=== PATIENT | male | born 1940 | race Caucasian/White ===

== ENCOUNTER 2017-11-06 16:30 | Inpatient (IN) | payer MEDICARE, BC ==
--- NOTE | 2017-11-17 15:53 | HP ---
HISTORY OF PRESENT ILLNESS: Mathew Collado is a 77-year-old male patient that presents to my office i n followup. He has an open wound left buttocks/thigh undergoing daily wound care. The wound VAC has been discontinued. He is undergoing non VAC care. Home health has seen him. Patient has a colosto my. 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 Drains were placed in the fistulous tract of his fistula. Postoperatively, the patient has done well. Plan at this time is for him to undergo colonoscopy after bowel prep, stay on clear liquids after that myrna wel prep, complete oral antibiotics and magnesium citrate and then the next day undergoing laparoscop ic possible open colostomy reversal, colorectal anastomosis and split-thickness skin grafting of the left buttock and thigh wounds 16 x 8 cm, approximately 128 cm2 area that needs to be skin grafted. Patient has had bradycardia. He is undergoing Holter monitoring next [address] Cano. I hernández ve spoken personally to Dr. Cano. The patient is cleared from a cardiac standpoint to have this pr ocedure done. We will schedule it about in 2 weeks given the patient time to have his Holter monitor interpreted. The patient had a right colon resection approximately 12 years ago resulting in anastomotic leak requ iring reoperation. Apparently had operation initially performed in [place] and then repeat operation s at [facility]. He has a right lateral mid abdomen transverse incision from that initial o peration. ALLERGIES: None. TOBACCO: None. ALCOHOL: None. MEDICATIONS: Lisinopril 2.5 mg a day, amiodarone 200 mg at bedtime, insulin a.m., tramadol b.i.d., s ertraline daily, furosemide 20 mg a day, B12 daily, Eliquis 5 mg b.i.d. Currently, this is held due to gastrointestinal bleeding. Glyburide 5 mg b.i.d., atorvastatin 20 mg at bedtime, Prilosec 20 mg a day, aspirin 81 mg a day. PAST SURGICAL HISTORY: Coronary artery bypass grafting in the past, right hemicolectomy, repeat oper ation for a leak performed for colon cancer, right shoulder surgery, recent stenting, operation as de scribed above due to colocutaneous fistula left colon from diverticulitis. PAST MEDICAL HISTORY: Coronary artery disease, stable; paroxysmal atrial fibrillation, had coronary artery bypass grafting, hypertension, hyperlipidemia, history of colon cancer, diabetes mellitus type 2, GERD, bradycardia, undergoing evaluation currently. REVIEW OF SYSTEMS: Noncontributory. PHYSICAL EXAMINATION: VITAL SIGNS: 207 pounds, 73 inches, 137/54, 46, 98.6 degrees. HEENT: Unremarkable. LUNGS: Clear to auscultation. CARDIAC: Irregularly irregular. ABDOMEN: Soft, nontender. Colostomy present. Midline incision well healed, right transverse mid ab dominal incision well healed. No hernias evident. Left buttock/thigh wound granulating, flushed wit h the skin 16 x 8 cm, 128 cm2 proximally. EXTREMITIES: Unremarkable. ASSESSMENT AND PLAN: 1. Colostomy status, he desires colostomy reversal. He has history of colon cancer. We will arrang e preoperative colonoscopy proctoscopy by [facility] and then he will stay on liq uids after that procedure and take oral antibiotic bowel prep and undergoing laparoscopic possible op en colostomy reversal skin grafting, left buttock, thigh graft for left buttock/thigh wound. H e understands risks of infection, bleeding, reoperation and consents. 2. History of atrial fibrillation. Currently, with bradycardia undergoing evaluation by Dr. Cano. I have talked to Dr. Cano personally, and he is undergoing Holter monitoring. We will await resu lts and plan surgery in the next 2-3 weeks as noted above, awaiting Dr. Cano's evaluation. He is c leared for surgery after Holter monitor evaluation. 3. History of coronary artery bypass grafting. 4. History of coronary stents. 5. History of colon cancer, status post right colectomy. 6. Plan, currently anticoagulation is held. 7. Currently we will plan for perioperative pain control with a tap block versus epidural.
[2017-12-05 14:52] VITALS: BMI 27.2
[2017-12-06] MEDS ORDERED: Lidocaine 1% (PF) 30 ML VIAL ONE (06:32)
[2017-12-06] MEDS ORDERED: Midazolam HCl 2 mg/2 ml Vial ONE ×2 (06:32→07:05)
[2017-12-06] MEDS ORDERED: Fentanyl 100 MCG/2 ML VIAL ONE ×5 (06:32→10:05)
[2017-12-06] MEDS ORDERED: Dexamethasone 4 mg/ml Vial ONE (06:34)
[2017-12-06 06:40] LABS: #Eosinphils 0.1 thou/uL (0.0-0.7); #Lymphocytes 1.4 thou/uL (1.20-3.40); #Monocytes 0.5 thou/uL (0.11-0.59); #Neutrophils 4.6 thou/uL (1.40-6.50); %Eosinophils 2.2 % (0.0-10.0); %Lymphocytes 20.3 % (21.0-51.0); %Monocytes 8.1 % (0.0-10.0); %Neutrophils 69.3 % (42.0-75.0); Hemoglobin 11.9 g/dL (14.0-18.0); Mean Corpuscular HGB CONC 30.4 g/dL (32.0-36.0); Mean Corpuscular Hemoglobin 24.6 pg (27.0-31.0); Mean Corpuscular Volume 80.8 fl (80.0-94.0); Mean Platelet Volume 9.7 fL (7.4-10.4); Platelet Count 202 thou/uL (130-400); RBC Distribution Width 17.2 % (11.5-14.5); Red Blood Cell (RBC) Count 4.83 mill/uL (4.70-6.10); White Blood Cell (WBC) Count 6.6 thou/uL (4.8-10.8)
[2017-12-06] MEDS ORDERED: cefOXitin 2 GM, Syringe 1 ML in Sterile Water 10 ML SLOW IVP SCH (06:45)
[2017-12-06] MEDS ORDERED: Bupivacaine 0.25% HCL 30 ML VIAL ONE ×2 (06:50→10:04)
[2017-12-06] MEDS ORDERED: Bupivacaine HCl 0.5%/Epinephrine 1:200,000/PF 30 ml Vial ONE (06:50)
[2017-12-06] MEDS ORDERED: Lidocaine 2% w/Epinephrine 1:200K 20 ML VIAL ONE (06:50)
[2017-12-06 06:52] LABS: Anion Gap 14 mmol/L (10-20); BUN (Urea Nitrogen) 19 mg/dL (8.4-25.7); Calc. Creatinine Clearance 57 mL/min (70-130); Carbon Dioxide 23 mmol/L (23-31); Chloride 105 mmol/L (98-107); Estimated GFR-MDRD 50; Glucose 153 mg/dL (83-110); Potassium 3.8 mmol/L (3.5-5.1); Sodium 138 mmol/L (136-145)
[2017-12-06] MEDS ORDERED: Ketorolac Tromethamine 30 MG/ML VIAL ONE (06:56)
[2017-12-06 07:04] LABS: Hemoglobin A1c 7.5 % (4.0-6.0)
[2017-12-06] MEDS ORDERED: cefOXitin 2 GM VIAL ONE (09:28)
[2017-12-06] MEDS ORDERED: Lidocaine 1% w/Epinephrine 1:200K 30 ML VIAL ONE (10:04)
[2017-12-06] MEDS ORDERED: Ondansetron HCl/PF 4 MG/2 ML Vial IVP PRN (10:09)
[2017-12-06] MEDS ORDERED: hydrALAZINE 20 MG/ML VIAL SLOW IVP PRN (10:09)
[2017-12-06] MEDS ORDERED: traMADol HCl 50 MG TAB PO PRN (10:13)
[2017-12-06] MEDS ORDERED: Ondansetron ODT 8 MG TAB PO PRN (10:20)
[2017-12-06] MEDS ORDERED: Ondansetron ORAL SOLN. 4 MG/5 ML UDCUP PO PRN ×2 (10:20)
[2017-12-06] MEDS ORDERED: Ondansetron ODT 4 MG TAB PO PRN (10:20)
[2017-12-06] MEDS ORDERED: Ondansetron ODT 8 MG TAB SL PRN (10:20)
[2017-12-06] MEDS: Acetaminophen 1,000 MG in Premix Bag 1 BAG IVPB SCH ×3 (13:05→23:47)
[2017-12-06] MEDS: Ketorolac Tromethamine 30 MG/ML VIAL IVP SCH ×3 (13:05→23:47)
[2017-12-06] MEDS: Lactated Ringer's 1,000 ML IV SCH ×3 (13:05→23:46)
--- NOTE | 2017-12-06 13:18 | OP ---
DATE OF PROCEDURE: 12/06/2017 PREOPERATIVE DIAGNOSIS: Undesired colostomy, status post diverticulitis, necessitans with necrotizin g fasciitis, left buttock and thigh. Open wound, left buttock and thigh, 19 x 6 cm. POSTOPERATIVE DIAGNOSIS: Undesired colostomy, status post diverticulitis, necessitans with necrotizi ng fasciitis, left buttock and thigh. Open wound, left buttock and thigh, 19 x 6 cm. PROCEDURE: Laparoscopic lysis of adhesions and reversal of colostomy with colorectal anastomosis 33 mm EEA stapler. Split thickness skin grafting harvesting, left lateral posterior thigh, applied to o pen wound left buttock/thigh, wound VAC application over the skin graft site. Prevena dressing, left abdomen. SURGEON: Dr. Octaviano David. ANESTHESIA: General. Local anesthetic mixture 0.25% Marcaine mixed with 1% Xylocaine with epinephri ne 20 mL, total volume mixture used, abdomen; and same mixture total volume used, skin graft harvest site, left thigh. PROCEDURE IN DETAIL: Patient taken to the operating room where under general anesthesia in the dorsa l lithotomy position, Rascon catheter was placed. Abdomen prepared with ChloraPrep, and perineum and buttocks prepared with Betadine, draped in the routine fashion. Right lateral subcostal incision mad e and pneumoperitoneum to 15 mmHg obtained with the Veress needle, replacing it with a 5 port, and vi anali laparoscope inserted. There were adhesions of small bowel and omentum to the anterior abdominal wall and an area clear of adhesions of 5 mm port was placed in the mid lateral right abdomen and care ful dissection carried out freeing the small bowel from the anterior abdominal wall. I was then able to place a 12 port in the right lower quadrant under laparoscopic visualization. We then took down more adhesions clearing the anterior abdominal wall. There was a mesh in the upper incision from her previous laparoscopic mesh repair of incisional hernia. This looked healthy and ingrown. No visibl e hernia was noted. Dissection was carried out and the colostomy identified and colostomy mobilized, small bowel adhesions taken down laparoscopically carefully. At this point, attention was then turn ed to the pelvis laparoscopically, where the rectal stump was identified and the sigmoid dissected fr ee down to the rectosigmoid junction and the rectum divided with the SARAY blue load Endo stapler. At this point, incision was made circumferentially at the old colostomy site, carried down through skin, subcutaneous tissue, dissecting the colon free from the abdomen and dropping into abdominal cavity. Wound protector was used. Colon end brought out through the wound protector and wound protected and colostomy excised and a 33 mm anvil lubricated in place within the colon and a pursestring suture of 2-0 Prolene secured around it. It was brought back into the abdominal cavity and then the operating crew's gloves were changed, dirty instruments discarded, and wound protector twisted reestablishing pneumoperitoneum. Anus gently dilated and passed into the rectal stump serially with upsizing dilato rs. The stapler was then placed and visualized laparoscopically in proper position and the post adva nced out of the rectal stump visualized and mated to the proximal colon connected and properly orient ed. The stapler was approximated within the torque fire range and then it was fired and then loosene d and removed, and complete donuts were noted and discarded. The anastomosis checked under water and there was no leak. At this point, the wound protector was removed and pneumoperitoneum reduced afte r GraNee needle 0 Vicryl used to close the fascia with single interrupted suture at the 12 port site right lower quadrant. Posterior fascia closed with continuous suture of #1 PDS. Wound irrigated. A nterior fascia approximately interrupted with [id number] sutures of #1 PDS. Wound irrigated aga in. Subcutaneous tissues irrigated closely. Hemostasis gained with the cautery and the colostomy ss ite closed with a 3-0 Monocryl pursestring puckering suture. Laparoscopic sites closed with 4-0 [place] cryl suture. Prevena dressing placed over the old colostomy site. The patient was then positioned in the right lateral decubitus position with the left side up and the wound of dimensions in size noted above was cleansed with ChloraPrep and it was debrided sharply of superficial tissue leveling the granulation tissue in place and laparotomy pad over it. A skin graft was harvested with a dermatome, approximately 0.20 thickness and then meshed 1.5:1 a proper size and then the split-thickness skin graft applied to the open wound and secured circumferentially with sta ples and excess trimmed. Xeroform, Telfa placed over the harvest site, left posterior lateral thigh, and OpSite dressing applied. Wound care team arrived and placed a wound VAC over the skin graft sit e. Patient tolerated the procedure well without complications.
[2017-12-06] MEDS ORDERED: Lidocaine 1% PF 5 ML VIAL ONE (16:23)
[2017-12-06] MEDS ORDERED: PHENYLEPHRINE-NS 100 MCG/ML 10 ML SYRINGE ONE (16:23)
[2017-12-06] MEDS ORDERED: Propofol 200 MG/20 ML VIAL ONE (16:23)
[2017-12-06] MEDS ORDERED: Glycopyrrolate 0.2 MG/ML 5 ML SYRINGE ONE (16:23)
[2017-12-06] MEDS: Insulin Regular 300 UNITS/3 ML VIAL SC PRN ×2 (17:34→21:12)
--- NOTE | 2017-12-06 19:01 | EKG ---
Test Reason : PREOP Blood Pressure : / mmHG Vent. Rate : 058 BPM Atrial Rate : 058 BPM P-R Int : 198 ms QRS Dur : 106 ms QT Int : 616 ms P-R-T Axes : 099 -37 -03 degrees QTc Int : 604 ms Sinus bradycardia Left axis deviation Inferior infarct (cited on or before 30-JUL-2017) Prolonged QT Abnormal ECG When compared with ECG of 31-JUL-2017 22:49, Incomplete right bundle branch block is no longer Present Minimal criteria for Anterior infarct are no longer Present Confirmed by DR. Juan A BENSON ([id number]) on 12/06/2017 7:01:40 PM Referred By: WESLEY Confirmed By:DR. Juan A BENSON
[2017-12-06] MEDS ORDERED: Apixaban 5 MG TAB PO SCH (21:00)
[2017-12-06] MEDS: Gabapentin 300 MG CAP PO SCH (21:11)
[2017-12-06] MEDS: Famotidine 20 MG TAB PO SCH (21:11)
[2017-12-06] MEDS: Amiodarone 200 MG TAB PO SCH (21:11)
[2017-12-06] MEDS: Enoxaparin Sodium 40 MG/0.4 ML SYRINGE SC SCH (21:11)
[2017-12-07] MEDS: Ketorolac Tromethamine 30 MG/ML VIAL IVP SCH ×2 (05:39→12:06)
[2017-12-07] MEDS: Acetaminophen 1,000 MG in Premix Bag 1 BAG IVPB SCH (05:39)
[2017-12-07 05:45] LABS: #Eosinphils 0.2 thou/uL (0.0-0.7); #Lymphocytes 0.9 thou/uL (1.20-3.40); #Monocytes 0.4 thou/uL (0.11-0.59); #Neutrophils 5.9 thou/uL (1.40-6.50); %Basophils 0.3 % (0.0-1.0); %Lymphocytes 12.2 % (21.0-51.0); %Monocytes 5.9 % (0.0-10.0); %Neutrophils 79.6 % (42.0-75.0); Hemoglobin 9.9 g/dL (14.0-18.0); Mean Corpuscular HGB CONC 30.6 g/dL (32.0-36.0); Mean Corpuscular Hemoglobin 24.9 pg (27.0-31.0); Mean Corpuscular Volume 81.2 fl (80.0-94.0); Mean Platelet Volume 9.7 fL (7.4-10.4); Platelet Count 152 thou/uL (130-400); RBC Distribution Width 17.2 % (11.5-14.5); Red Blood Cell (RBC) Count 3.98 mill/uL (4.70-6.10); White Blood Cell (WBC) Count 7.4 thou/uL (4.8-10.8)
[2017-12-07 06:11] LABS: Anion Gap 11 mmol/L (10-20); BUN (Urea Nitrogen) 21 mg/dL (8.4-25.7); Calc. Creatinine Clearance 52 mL/min (70-130); Calcium 7.8 mg/dL (7.8-10.44); Carbon Dioxide 24 mmol/L (23-31); Chloride 103 mmol/L (98-107); Estimated GFR-MDRD 45; Glucose 108 mg/dL (83-110); Potassium 3.6 mmol/L (3.5-5.1); Sodium 134 mmol/L (136-145)
[2017-12-07] MEDS: Lactated Ringer's 1,000 ML IV SCH ×2 (06:21→12:58)
[2017-12-07] MEDS ORDERED: Acetaminophen 500 MG TAB PO PRN (08:00)
[2017-12-07] MEDS: Aspirin 81 mg Enteric Coated Tablet PO SCH (08:45)
[2017-12-07] MEDS: Famotidine 20 MG TAB PO SCH ×2 (08:45→20:34)
[2017-12-07] MEDS: Lisinopril 2.5 MG TAB PO SCH (08:47)
[2017-12-07] MEDS: Insulin Regular 300 UNITS/3 ML VIAL SC PRN ×3 (12:06→20:35)
[2017-12-07] MEDS ORDERED: Polyethylene Glycol 3350 17 GM Packet PO PRN (16:56)
--- NOTE | 2017-12-07 17:44 | PRG ---
DATE OF SERVICE: 12/07/2017 SUBJECTIVE: : Mathew Collado is doing well postoperatively. He is not having any pain to speak o f. Status post laparoscopic colostomy reversal and split-thickness skin grafting, left buttock, thig h wound. Patient has had a bowel movement and passing flatus. He has not suffered any nausea or vom iting. OBJECTIVE: VITAL SIGNS: 99.1 degrees, 68, 115/57. LUNGS: Clear to auscultation. CARDIAC: Regular rate and rhythm without murmur or gallop. ABDOMEN: Soft, nontender, active bowel sounds. Surgical wounds look good. Prevena wound incisional VAC. Colostomy site left lower quadrant looks good. Skin harvest site. EXTREMITIES: Left thigh looks good. ASSESSMENT AND PLAN: Doing well. PLAN: Continue diabetic diet tonight. Resume home medications. Hold Eliquis 48-72 hours postoperat ively. Discharge home tomorrow.
[2017-12-07] MEDS: metFORMIN 500 MG TAB PO SCH (18:23)
[2017-12-07] MEDS: traMADol HCl 50 MG TAB PO PRN ×2 (18:23→23:43)
[2017-12-07] MEDS: Amiodarone 200 MG TAB PO SCH (20:33)
[2017-12-07] MEDS: Gabapentin 300 MG CAP PO SCH (20:34)
[2017-12-07] MEDS: Enoxaparin Sodium 40 MG/0.4 ML SYRINGE SC SCH (20:34)
[2017-12-07] MEDS ORDERED: Atorvastatin Calcium 20 MG TAB PO SCH (21:00)
[2017-12-08] MEDS: Insulin Regular 300 UNITS/3 ML VIAL SC PRN (06:19)
[2017-12-08] MEDS: Aspirin 81 mg Enteric Coated Tablet PO SCH (07:53)
[2017-12-08] MEDS: metFORMIN 500 MG TAB PO SCH (07:53)
[2017-12-08] MEDS: Lisinopril 2.5 MG TAB PO SCH (07:54)
[2017-12-08] MEDS: Famotidine 20 MG TAB PO SCH (07:54)
[2017-12-08] MEDS: traMADol HCl 50 MG TAB PO PRN ×2 (07:57→13:05)
[2017-12-08] MEDS ORDERED: Furosemide 20 MG TAB PO SCH (09:00)
[2017-12-08] MEDS ORDERED: Cyanocobalamin (Vitamin B-12) 1,000 MCG TAB PO SCH (09:00)
[2017-12-08] MEDS ORDERED: Insulin Detemir 100 UNITS/ML 40 UNITS in Pre-Filled Syringe SC SCH (09:00)
--- NOTE | 2017-12-08 10:52 | PRG ---
DATE OF SERVICE: 12/08/2017 Mathew Collado is doing well today. PHYSICAL EXAMINATION: VITAL SIGNS: Stable, afebrile. He is tolerating a regular diabetic diet. LUNGS: Clear to auscultation. CARDIAC: Regular rate and rhythm without murmur or gallop. ABDOMEN: Soft, nontender. Segmental colon resection specimen pathology was benign. Laboratories are stable. The patient's Prevena wound VAC incisional taken off his old colostomy site left lower quadrant and t his wound looks good. The patient is doing very well. He is being discharged home today with a home wound VAC. I will see him in the office Monday afternoon to remove his wound VAC from his skin raheem t site. The patient will resume his Eliquis tomorrow evening 3 days postoperatively.
[2017-12-08 11:21] VITALS: BP 137/69; TEMP 98.3
--- NOTE | 2017-12-08 18:49 | DIS ---
DATE OF ADMISSION: 12/05/2017 DATE OF DISCHARGE: 12/08/2017 DISCHARGE DIAGNOSES: Undesired colostomy, open wound left hip. DISCHARGE MEDICATIONS: Today is Monday; he will resume his Eliquis tomorrow evening, 3 days postoper atively. He will resume his home medications; MiraLax, B12; metformin 1000 b.i.d.; sertraline q.a.m. ; lisinopril 2.5 daily; Prilosec 20 mg a day; amiodarone 0.5 mg at bedtime; gabapentin 600 mg at bedt jono; furosemide 20 mg a day; atorvastatin 20 mg at bedtime; Eliquis 5 mg b.i.d., resume tomorrow even ing; insulin 40 units subcutaneously a.m.; aspirin 81 mg daily; tramadol as needed for pain, prescrip tion #25 one refill given; ibuprofen as needed for pain and Tylenol as needed for pain, [id number] ter. HOSPITAL COURSE: Diverticulitis necessitans resulting necrotizing fasciitis, left flank, buttock and thigh, status post incision and drainage, debridement, laparotomy and colostomy. He now presents fo r colostomy reversal, undergoing laparoscopic colostomy reversal after preoperative colonoscopy bowel prep. Postoperatively, he has done well. He had skin grafting in his left open wound left buttock and thigh. Wound VAC was applied to that. Prevena wound VAC removed prior to discharge from his old colostomy site that looked good. The patient postoperatively convalesced, tolerated diet, and had b owel function and discharged home with followup next week.
[2017-12-09] MEDS ORDERED: Ibuprofen 600 MG TAB PO PRN (08:00)
== END 2017-12-08 13:45 | disposition home health service (06) | DRG 576 ==
LOC: SURG A 12-06 05:33 → SURG B 12-06 12:37
PROVIDERS: ADMIT Specialist; ATTEND Specialist
PROC: 0HR8X74 Replacement of Buttock Skin with Autologous Tissue Substitute, Partial Thickness, External Approach (ICD-10-PCS; principal; 2017-12-06)
PROC: 0DBP4ZZ Excision of Rectum, Percutaneous Endoscopic Approach (ICD-10-PCS; 2017-12-06)
PROC: 0DNU4ZZ Release Omentum, Percutaneous Endoscopic Approach (ICD-10-PCS; 2017-12-06)
PROC: 0DN84ZZ Release Small Intestine, Percutaneous Endoscopic Approach (ICD-10-PCS; 2017-12-06)
PROC: 0MN Bursae and Ligaments, Release (ICD-10-PCS; 2017-12-06)
PROC: 0JB90ZZ Excision of Buttock Subcutaneous Tissue and Fascia, Open Approach (ICD-10-PCS; 2017-12-06)
PROC: 0HBJXZZ Excision of Left Upper Leg Skin, External Approach (ICD-10-PCS; 2017-12-06)
DX: S71.102A Unspecified open wound, left thigh, initial encounter (principal); M72.6 Necrotizing fasciitis; I48.0 Paroxysmal atrial fibrillation; I11.0 Hypertensive heart disease with heart failure; I50.42 Chronic combined systolic (congestive) and diastolic (congestive) heart failure; Z43.3 Encounter for attention to colostomy; E11.9 Type 2 diabetes mellitus without complications; I25.10 Atherosclerotic heart disease of native coronary artery without angina pectoris; Z79.01 Long term (current) use of anticoagulants; Z90.49 Acquired absence of other specified parts of digestive tract; Z79.82 Long term (current) use of aspirin; Z79.4 Long term (current) use of insulin; E78.5 Hyperlipidemia, unspecified; Z85.038 Personal history of other malignant neoplasm of large intestine; K21.9 Gastro-esophageal reflux disease without esophagitis; S31.829A Unspecified open wound of left buttock, initial encounter; K57.90 Diverticulosis of intestine, part unspecified, without perforation or abscess without bleeding; Z87.891 Personal history of nicotine dependence; R00.1 Bradycardia, unspecified
CPT/HCPCS: 36415; 36416; 80048; 83036; 85025; 88307; 93005; 93010; A4216; J0131; J0670; J0694; J1100; J1650; J1815; J1885; J2001; J2250; J2704; J3010; S0020

== ENCOUNTER 2018-07-26 17:16 | Emergency (ER) | payer MEDICARE, BC ==
[2018-07-26 18:36] LABS: #Eosinphils 0.2 thou/uL (0.0-0.7); #Lymphocytes 1.9 thou/uL (1.20-3.40); #Monocytes 0.5 thou/uL (0.11-0.59); #Neutrophils 4.5 thou/uL (1.40-6.50); %Basophils 0.3 % (0.0-1.0); %Eosinophils 2.6 % (0.0-10.0); %Monocytes 7.6 % (0.0-10.0); %Neutrophils 62.6 % (42.0-75.0); Hemoglobin 13.4 g/dL (14.0-18.0); Mean Corpuscular HGB CONC 31.3 g/dL (32.0-36.0); Mean Corpuscular Volume 83.2 fL (78.0-98.0); Mean Platelet Volume 6.1 fL (7.4-10.4); Platelet Count 172 thou/uL (130-400); RBC Distribution Width 25.6 % (11.5-14.5); Red Blood Cell (RBC) Count 5.15 mill/uL (4.70-6.10); White Blood Cell (WBC) Count 7.1 thou/uL (4.8-10.8)
[2018-07-26 18:51] LABS: Anisocytosis MODERATE=16-30 cells (100X) (0-5/hpf); Elliptocytes SLIGHT = 2-5 cells (100X) (0-1/hpf); Hypochromia SLIGHT = 6-15 cells (100X) (0-5/hpf); MDiff Complete? YES; Ovalocytes SLIGHT = 2-5 cells (100X) (0-1/hpf); PLT Morphology Comment Appears Adequate; Poikilocytosis SLIGHT = 6-15 cells (100X) (0-5/hpf); Polychromasia SLIGHT = 2-3 cells (100X) (0-2/hpf); Schistocytes SLIGHT = 2-5 cells (100X) (0-1/hpf)
[2018-07-26 18:59] LABS: ALT (SGPT) 19 U/L (8-55); AST (SGOT) 26 U/L (5-34); Albumin 4.2 g/dL (3.4-4.8); Alkaline Phosphatase 86 U/L (40-150); Anion Gap 13 mmol/L (10-20); BUN (Urea Nitrogen) 28 mg/dL (8.4-25.7); Bilirubin, Total 0.8 mg/dL (0.2-1.2); CKMB 5.2 ng/mL (0-6.6); Calc. Creatinine Clearance 0 mL/min (70-130); Calcium 9.4 mg/dL (7.8-10.44); Carbon Dioxide 24 mmol/L (23-31); Chloride 106 mmol/L (98-107); Estimated GFR-MDRD 47; Globulin 3.6 g/dL (2.4-3.5); Glucose 158 mg/dL (83-110); Potassium 4.3 mmol/L (3.5-5.1); Protein, Total 7.8 g/dL (5.8-8.1); Sodium 139 mmol/L (136-145); Troponin I Less than 0.010 ng/mL (< 0.028)
--- NOTE | 2018-07-26 19:26 | RAD ---
CHEST ONE VIEW: 07/26/18 HISTORY: Atrial fibrillation. COMPARISON: 08/23/17. FINDINGS: The cardiac silhouette is magnified by projection. Pulmonary vasculature upper limits of normal. Medi astinum is midline with aortic calcification and postoperative changes. No confluent air space consol idation or evidence of pneumothorax. IMPRESSION: Chronic type findings are stable. No active cardiopulmonary abnormalities are demonstrated. POS: [facility]
== END 2018-07-26 21:25 | disposition home or self-care (01) ==
LOC: ERS 17:16
DX: R00.0 Tachycardia, unspecified (principal); I25.2 Old myocardial infarction; E11.9 Type 2 diabetes mellitus without complications; I10 Essential (primary) hypertension; E66.9 Obesity, unspecified; I48.91 Unspecified atrial fibrillation; Z79.82 Long term (current) use of aspirin; Z79.899 Other long term (current) drug therapy; Z79.4 Long term (current) use of insulin
CPT/HCPCS: 71045; 80053; 82553; 84484; 85025; 93005; 96360; 96361

== ENCOUNTER 2018-11-07 09:39 | Inpatient (IN) | payer MEDICARE, BC ==
[2018-11-07 10:54] LABS: #Eosinphils 0.1 thou/uL (0.0-0.7); #Lymphocytes 0.9 thou/uL (1.20-3.40); #Monocytes 0.4 thou/uL (0.11-0.59); %Basophils 0.1 % (0.0-1.0); %Eosinophils 0.8 % (0.0-10.0); %Lymphocytes 10.3 % (21.0-51.0); %Monocytes 4.6 % (0.0-10.0); %Neutrophils 84.1 % (42.0-75.0); Hemoglobin 13.7 g/dL (14.0-18.0); Mean Corpuscular HGB CONC 31.6 g/dL (32.0-36.0); Mean Corpuscular Hemoglobin 28.5 pg (27.0-31.0); Mean Corpuscular Volume 90.4 fL (78.0-98.0); Mean Platelet Volume 8.6 fL (7.4-10.4); Platelet Count 238 thou/uL (130-400); RBC Distribution Width 14.2 % (11.5-14.5); White Blood Cell (WBC) Count 8.4 thou/uL (4.8-10.8)
--- NOTE | 2018-11-07 10:58 | RAD ---
CHEST 1 VIEW: HISTORY: Cough. COMPARISON: 07/26/2018. FINDINGS: Cardiac silhouette is magnified by projection and upper limits of normal. Pulmonary vasculature uppe r limits of normal. Mild atelectasis at the left base is stable. The patient is slightly rotated ri ghtward. There are postoperative changes of the mediastinum and aortic calcifications. Degenerative changes of each shoulder. No evidence of pneumothorax. IMPRESSION: 1. Atherosclerosis. 2. Chronic-type findings are stable. POS: [facility]
[2018-11-07 11:18] LABS: ALT (SGPT) 16 U/L (8-55); AST (SGOT) 24 U/L (5-34); Albumin 3.9 g/dL (3.4-4.8); Alkaline Phosphatase 89 U/L (40-150); Anion Gap 15 mmol/L (10-20); BUN (Urea Nitrogen) 19 mg/dL (8.4-25.7); Bilirubin, Total 0.8 mg/dL (0.2-1.2); Calc. Creatinine Clearance 0 mL/min (70-130); Calcium 9.6 mg/dL (7.8-10.44); Carbon Dioxide 24 mmol/L (23-31); Chloride 106 mmol/L (98-107); Estimated GFR-MDRD 56; Globulin 3.2 g/dL (2.4-3.5); Glucose 141 mg/dL (83-110); Magnesium 2.2 mg/dL (1.6-2.6); Protein, Total 7.1 g/dL (5.8-8.1); Sodium 141 mmol/L (136-145)
--- NOTE | 2018-11-07 11:44 | CT ---
CT HEAD NONCONTRAST: Date: 11/07/18 HISTORY: Altered mental status. Headache. FINDINGS: No comparison. There is no evidence of acute intracranial hemorrhage or infarct. Mild chronic ischemic small vessel disease and diffuse cortical atrophy. There is no mass effect or shift of midline structures. Visuali zed paranasal sinuses remain well aerated. IMPRESSION: No acute intracranial abnormalities are demonstrated. POS: [facility]
[2018-11-07 11:47] LABS: Bilirubin Negative (Negative); Blood, Urine Small (Negative); Clarity CLEAR (Clear); Glucose, Urine (Dipstick) 100 mg/dL (Negative); Leukocyte Negative (Negative); Nitrite Negative (Negative); Protein, Urine (Dipstick) 100 mg/dL (Neg-Trace); Specific Gravity, Urine 1.023 (1.002-1.036); Urobilinogen 0.2 mg/dL (0.2-1.0)
[2018-11-07 11:49] LABS: Bacteria/HPF None Seen HPF (None Seen); Hyaline Casts/LPF 7-10 HYALINE CAST LPF (0-3 Hyaline); Pathc Cast-AUWi Flag 1.01 (0-2.49); Squamous Epithelial 0-3 HPF (0-3); WBC/HPF 0-3 HPF (0-3)
--- NOTE | 2018-11-07 13:14 | CT ---
CT LUMBAR SPINE NONCONTRAST: HISTORY: Back pain with leg weakness. FINDINGS: Vertebral body height and alignment are maintained. Disk space narrowing at the L1-2, L2-3, and L3-4 levels. Multilevel gas-disk phenomenon. Prominent osteophytosis. Mild disk bulges. No severe angie tral canal stenosis or focal traumatic disk herniation is apparent. Degenerative changes are present with multilevel foraminal stenoses most severe bilaterally at the L3-4 level and on the right at the L4-5 level. Prominent calcification throughout the arterial structures. IMPRESSION: 1. Prominent degenerative changes of the lumbar spine including severe bilateral foraminal stenoses. No evidence of high-grade central canal stenosis. 2. No acute osseous abnormalities are demonstrated. 3. Atherosclerosis. POS: [facility]
[2018-11-07 16:04] VITALS: BMI 30.3
[2018-11-07] MEDS ORDERED: Ondansetron ODT 4 MG TAB PO PRN (17:19)
[2018-11-07] MEDS ORDERED: Ondansetron PF 4 MG/2 ML Vial IVP PRN (17:19)
[2018-11-07] MEDS ORDERED: Dextrose 5% in Water 1,000 ML IV PRN (17:19)
[2018-11-07] MEDS ORDERED: Dextrose 50% Abboject 50 ML SYRINGE SLOW IVP PRN (17:19)
--- NOTE | 2018-11-07 19:34 | HP ---
PRIMARY CARE PROVIDER: John Romero DO CHIEF COMPLAINT: Lower extremity weakness and fall. HISTORY OF PRESENT ILLNESS: This is a 78-year-old male, who presented to [facility] Emergency Department, complaining of progressive bilateral lower extremity weakness, right greater than left in the last 48 to 72 hours. The patient states the weakness has been progressive, worsening in the middle of the night on 11/06/2018, after attempting to go to the restroom. The patient states he went to the restroom and was unable to make it back to his bed and had to crawl on his floor pulling himself back to the bed, but was needing family assistance to get into the bed. The patient noticed increasing weakness of his lower extremities without bowel or bladder incontinence, back pain, fever, or chills. The patient states that he was recently diagnosed with a urinary tract infection and treated with Bactrim x5 days. The patient also states he received influenza and pneumonia vaccination in the last week, developing severe symptoms of body aches, fever, and general malaise. The reports the patient had an influenza vaccination many years ago and was put "out of commission" for 3 weeks after the vaccination. The patient denied any nausea, vomiting, hematemesis, blood in the stool, or hematuria. The patient denied any weakness of the upper extremities, difficulty with speech, facial droop, or visual disturbance. The patient states he is normally fairly active, but has been followed by [facility] with [facility] over the last 6 to 8 months. The patient has received physical therapy at home and was recently being evaluated to resume physical therapy within the last 24 to 48 hours per family report. 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 The patient denies any other exposure history, family members with similar symptoms, seizure activity, or recent travel. In the emergency room, the patient underwent evaluation including CT imaging of the lumbar spine and brain showing essentially negative findings. Metabolic workup was unrevealing. The patient was referred to the Hospitalist Service for further evaluation. PAST MEDICAL HISTORY: 1. Coronary artery disease, status post myocardial infarction. 2. Diabetes mellitus type 2 with peripheral neuropathy. 3. History of colon cancer, status post chemotherapy and bowel resection. 4. 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 5. Paroxysmal atrial fibrillation with chronic anticoagulation. 6. Hypertension. 7. Hyperlipidemia. 8. Gastroesophageal reflux. 9. Deconditioning requiring home health with physical therapy. PAST SURGICAL HISTORY: 1. Status post hemicolectomy secondary to colon adenocarcinoma. 2. Status post laparotomy with open debridement with necrotizing fasciitis. 3. Status post right shoulder repair. 4. Status post coronary artery bypass grafting. 5. Status post incisional hernia with subsequent repair. 6. Status post repair of enteric fistulas of the right abdomen. CURRENT MEDICATIONS: 1. Amiodarone 100 mg p.o. at bedtime. 2. Lipitor 20 mg p.o. at bedtime. 3. Vitamin B12 of 500 mcg sublingually daily. 4. Lasix 20 mg p.o. daily. 5. Gabapentin 600 mg p.o. at bedtime. 6. Glargine insulin 40 units subcutaneously q.a.m. 7. Lisinopril 2.5 mg p.o. daily. 8. Metformin 1000 mg p.o. b.i.d. 9. Omeprazole 20 mg p.o. daily. 10. MiraLAX 17 g p.o. daily p.r.n. 11. Sertraline 50 mg p.o. q.a.m. 12. Eliquis 5 mg p.o. b.i.d. 13. Enteric-coated aspirin 81 mg p.o. daily. 14. Ultram 50 mg p.o. q.6 hours p.r.n. pain. ALLERGIES: NO KNOWN DRUG ALLERGIES. FAMILY HISTORY: Parents at advanced ages. Sister secondary to complications of diabetes mellitus. SOCIAL HISTORY: The patient is x59 years. Resides in [place], [place]. Accompanied by his and daughter in the hospital. Remote smoking, quitting over 18 years prior to this evaluation. No alcohol or illicit drug use. REVIEW OF SYSTEMS: CONSTITUTIONAL: Negative for weight loss or gain, ability to conduct usual activities. SKIN: Negative for rash, itching. EYES: Negative for double vision, pain. ENT/MOUTH: Negative for nose bleeding, neck stiffness, pain, tenderness. CARDIOVASCULAR: Negative for palpitations, dyspnea on exertion, orthopnea. RESPIRATORY: Negative for shortness of breath, wheezing, cough, hemoptysis, fever or night sweats. GASTROINTESTINAL: Negative for poor appetite, abdominal pain, heartburn, nausea, vomiting, constipation, or diarrhea. GENITOURINARY: Negative for urgency, frequency, dysuria, nocturia. MUSCULOSKELETAL: Negative for pain, swelling. NEUROLOGIC/PSYCHIATRIC: Negative for anxiety, depression. ALLERGY/IMMUNOLOGIC: Negative for skin rash, bleeding tendency. Otherwise, negative except as stated per HPI. PHYSICAL EXAMINATION: VITAL SIGNS: Currently; blood pressure 165/71, pulse 71, respiratory rate 16, temperature 97.6 degrees Fahrenheit, and O2 saturation 96% on room air. GENERAL APPEARANCE: This is a 78-year-old male, alert and oriented x3, pleasant, responsive, in no acute distress. HEENT: Pupils are equal, round, and reactive to light and accommodation. Extraocular muscles are intact. No scleral icterus. No conjunctival injection. Nares patent. OP is clear. Teeth in fair repair. NECK: Supple. No cervical adenopathy. No thyromegaly. No carotid bruits. No JVD appreciated. Cervical spine with full active and passive range of motion. No meningeal signs noted. CHEST: Lungs are clear to auscultation bilaterally. CARDIOVASCULAR: S1 and S2 without noted murmur, rub, or gallop. ABDOMEN: Obese. Landmarks difficult to palpate due to the patient's body habitus. Bowel sounds positive in all 4 quadrants. No rebound or guarding noted. EXTREMITIES: Warm and dry with fair turgor. No clubbing, cyanosis, or asymmetric edema appreciated. Pulses palpable distally at the dorsalis pedis, posterior tibial, and popliteal arteries bilaterally. Capillary refill less than 2 seconds. NEUROLOGIC: Cranial nerves II through XII are grossly intact. Moves all extremities in the supine position. Muscle strength in the flexors 3 to 4/5, hamstrings 3/5. Babinski absent bilaterally. No clonus noted. Not observed ambulatory during the exam. Weakness noted in the hip flexors and hamstring region bilaterally. PERTINENT LABORATORY AND X-RAY FINDINGS: Sodium 141, potassium 4.0, chloride 106, CO2 of 24, BUN 19, creatinine 1.25, estimated GFR of 56, glucose 141, calcium 9.6, and magnesium 2.2. LFTs within normal limits. Troponin I negative x1. CBC showed a white blood cell count of 8.4, hemoglobin 14, hematocrit 43, and platelet count 238 with 84% neutrophils. Urinalysis dated 11/07/2018, positive for protein and glucose, nitrite and leukocyte esterase negative. CT of the brain without contrast dated 11/07/2018, showed no acute intracranial process. Portable chest x-ray dated 11/07/2018, showed no acute cardiopulmonary process. CT of the lumbar spine dated 11/07/2018, showed degenerative changes of the lumbar spine. Severe bilateral foraminal stenosis at the L3-L4 level and on the right at L4-L5 level. EKG dated 11/07/2018, by my interpretation shows sinus mechanism with incomplete right bundle-branch block pattern. Heart rate in the 60s. Left axis deviation. No acute ST-T wave changes noted. ASSESSMENT AND PLAN: 1. Bilateral lower extremity weakness/ataxia. The patient will be admitted to the medical floor. Exact etiology unclear, likely multifactorial including affects of recent immunization in conjunction with peripheral neuropathy in the context of diabetes mellitus. Initiate prednisone 40 mg daily, first dose now. Check B12, TSH level, and total CK level. Check MRI of the thoracic spine. Neurology consult pending. PT evaluation in the a.m. 2. Urinary tract infection. Appears resolving with screening urinalysis. Hold antibiotic therapy. 3. Chronic kidney disease, stage 3. Avoid nephrotoxic agents and limit contrast exposure. Repeat creatinine in the a.m. 4. Diabetes mellitus, type 2 with peripheral neuropathy. Resume home diabetic regimen. Insulin sliding scale for reflexive coverage. ADA diet. 5. Hypertension. Resume home antihypertensive regimen and monitor clinical response. 6. Chronic anticoagulation. Continue Eliquis 5 mg p.o. b.i.d. 7. Prophylaxis. SCDs while in bed. Pepcid 20 mg p.o. b.i.d. PT evaluation in the a.m. CODE STATUS: Full. Surrogate medical decision maker is the patient's spouse. Job ID: [id number]
[2018-11-07] MEDS ORDERED: predniSONE 20 MG TAB PO SCH (19:45)
[2018-11-07] MEDS ORDERED: Gabapentin 300 MG CAP PO SCH (21:00)
[2018-11-07] MEDS: Atorvastatin Calcium 20 MG TAB PO SCH (21:47)
[2018-11-07] MEDS: Amiodarone 200 MG TAB PO SCH (21:47)
[2018-11-07] MEDS: Famotidine 20 MG TAB PO SCH (21:47)
[2018-11-07] MEDS: Apixaban 5 MG TAB PO SCH (21:47)
[2018-11-07] MEDS: traMADol HCl 50 MG TAB PO PRN (21:49)
[2018-11-08] MEDS: Acetaminophen 500 MG TAB PO PRN (05:53)
[2018-11-08] MEDS: Apixaban 5 MG TAB PO SCH (08:29)
[2018-11-08] MEDS: Aspirin 81 mg Enteric Coated Tablet PO SCH (08:30)
[2018-11-08] MEDS: Furosemide 20 MG TAB PO SCH (08:30)
[2018-11-08] MEDS: metFORMIN 500 MG TAB PO SCH ×2 (08:30→18:13)
[2018-11-08] MEDS: predniSONE 20 MG TAB PO SCH (08:30)
[2018-11-08] MEDS: Lisinopril 2.5 MG TAB PO SCH (08:30)
[2018-11-08] MEDS: Famotidine 20 MG TAB PO SCH ×2 (08:30→20:47)
[2018-11-08 08:43] LABS: Folate (Folic Acid) 7.2 ng/mL (7.0-31.4)
[2018-11-08] MEDS ORDERED: Non-Formulary Item 1 EACH (Insulin Glargine,Hum.Rec.Anlog [Lantus Solostar] 40 UNIT) SQ SCH (09:00)
[2018-11-08] MEDS: HumaLOG 300 UNITS/3 ML VIAL SC PRN ×4 (09:23→20:53)
[2018-11-08] MEDS: Insulin Glargine 40 UNITS in Pre-Filled Syringe 1 EACH SC SCH (09:23)
--- NOTE | 2018-11-08 11:16 | MRI ---
MRI THORACIC SPINE WITH AND WITHOUT CONTRAST: DATE: 11/08/2018. HISTORY: A 78-year-old male with multiple falls and ataxic gait. COMPARISON: No prior CTs or MRIs of the lumbar spine. TECHNIQUE: Multisequence MRI of thoracic spine obtained in sagittal and axial planes, pre- and post-IV injection of 18 mL of MultiHance Gadolinium-based contrast agent. FINDINGS: The container crane operator sagittal localizer that includes the cervical spine demonstrates multilevel severe cervical degenerative disk disease with disk-osteophyte complexes causing multilevel severe cervical spinal c anal stenosis, compressing the spinal cord at multiple levels. This is incompletely imaged, and a de dicated MRI of the cervical spine is recommended, given the patient's symptoms. Regarding the thoracic spine, the following observations are made: Degenerative disk disease throughout all levels with mild and moderate-severe disk space narrowing. Vertebral body heights are maintained. Hemangioma of bone at T2 vertebral body. Multiple Schmorl's nodes and small end plate irregularities throughout almost all levels. Modic type I end plate marrow changes at several levels. Vertebral body heights are maintained. There are shallow, mild, tiny di he-[id number] protrusions slightly indenting the ventral aspect of the thecal sac at numerou s levels, mostly in the upper thoracic spine. No significant central spinal canal stenosis at any le kirstin. There is moderate neural foraminal stenosis bilaterally at T9-10. The thoracic spinal cord is normal in size and signal, with no syrinx. There is no abnormal enhancement or mass in the intramedu llary, extramedullary/intradural, extradural, or perivertebral spaces. IMPRESSION: 1. Multilevel severe central spinal canal stenosis causing multilevel chronic cord compression in th e cervical spine, incompletely imaged. Recommend dedicated MRI of the cervical spine noncontrast. 2. No significant central spinal canal stenosis or cord compression in the thoracic spine. 3. Thoracic spondylosis with multilevel mild and moderate degenerative disk disease. POS: LENORA
--- NOTE | 2018-11-08 15:40 | PDOC.PN ---
- Subjective Encounter Start Date: 11/08/18 Encounter Start Time: 15:30 Subjective: f/u for LE weakness, ataxic gait and fall. Feels better overall and -: moving the LE's much easier today. No fever or incontinence. - Objective Resuscitation Status - Order Detail: 11/07/18 17:04 Resuscitation Status Routine Resuscitation Status: FULL: Full Resuscitation MAR Reviewed: Yes Vital Signs & Weight: Vital Signs (12 hours) Temp Pulse Resp BP BP Pulse Ox 11/08/18 08:30 83 149/82 H 11/08/18 08:22 94 L 11/08/18 08:00 97.8 F 83 20 149/82 H 94 L Weight Weight 230 lb Result Diagrams: 11/07/18 10:44 11/07/18 10:44 Additional Labs: Accuchecks 11/08/18 11/08/18 11/07/18 11:34 05:59 21:08 POC Glucose 253 H 239 H 222 H 11/07/18 16:26 POC Glucose 81 Radiology Reviewed by me: Yes (T-spine MRI - multilevel DJD/disk disease without cord compression) Phys Exam - Physical Examination Constitutional: NAD HEENT: PERRLA, sclera anicteric, oral pharynx no lesions Neck: no nodes, no JVD, supple, full ROM Respiratory: no wheezing, no rales, no rhonchi, clear to auscultation bilateral S1, S2 Cardiovascular: RRR, no significant murmur, no rub, gallop Gastrointestinal: soft, non-tender, no distention, positive bowel sounds Musculoskeletal: no edema, pulses present mild weakness in hip flexion Neurological: normal sensation, moves all 4 limbs Psychiatric: normal affect, A&O x 3 Skin: normal turgor, cap refill <2 seconds Dx/Plan (1) Weakness of both lower limbs Code(s): R29.898 - OTH SYMPTOMS AND SIGNS INVOLVING THE MUSCULOSKELETAL SYSTEM Status: Acute Comment: Likely multifactorial, improved with Prednisone, PT for mobilization, arrange for HH/PT (2) DM type 2 with diabetic peripheral neuropathy Code(s): E11.42 - TYPE 2 DIABETES MELLITUS WITH DIABETIC POLYNEUROPATHY Status : Chronic Comment: Increase Gabapentin 900mg HS (3) CKD (chronic kidney disease), stage III Code(s): N18.3 - CHRONIC KIDNEY DISEASE, STAGE 3 (MODERATE) Status: Chronic Comment: Stable, avoid nephrotoxic meds and limit contrast exposure (4) HTN (hypertension) Code(s): I10 - ESSENTIAL (PRIMARY) HYPERTENSION Status: Chronic Qualifiers: Hypertension type: essential hypertension Qualified Code(s): I10 - Essential (primary) hypertension Comment: Resume home BP regimen, serial monitoring (5) UTI (urinary tract infection) Status: Acute Comment: Suspected, Omnicef 300mg BID (6) DJD (degenerative joint disease) of thoracic spine Code(s): M47.814 - SPONDYLOSIS W/O MYELOPATHY OR RADICULOPATHY, THORACIC REGION Status: Chronic Comment: Supportive mgmt, PT for home, fall risk precautions - Plan continue antibiotics, PT/OT, social welfare clerk, out of bed/ambulate, DVT proph w/ SCDs Stable overall -: Continue Prednisone 40mg daily -: OOB/PT -: Increase Gabapentin 900mg HS -: Likely home in 24h * .
[2018-11-08] MEDS: Cefdinir 300 MG CAP PO SCH (18:12)
--- NOTE | 2018-11-08 20:30 | CON ---
DATE OF CONSULTATION: 11/08/2018 CONSULTING PHYSICIAN: Hospitalist Services. IMPRESSION: Progressive quadriplegia secondary to either cervical spinal stenosis or acute inflammatory neuropathy. PLAN: 1. MRI of the cervical spine. 2. Hold Eliquis. 3. Consider need for lumbar puncture following the results of the MRI. HISTORY OF PRESENT ILLNESS: Mr. Collado is a 78-year-old gentleman with a past history of diabetes, coronary artery disease, colon cancer, and atrial fibrillation. He is anticoagulated on Eliquis last week and he started noticing progressive weakness in his legs. He was unable to stand and was crawling around the house. He came into the emergency room for evaluation. His CT scan of the brain was unremarkable. All his lab work was in normal range. He had an MRI of the thoracic spine done today. This did not reveal any evidence of stenosis or cord infarction. The auto design checker images suggested the possibility of a high-grade cervical spinal stenosis. The patient is without any complaints of tingling or numbness of the extremities. He had what sounded to be a urinary tract infection prior to admission, which was treated with antibiotics. He feels like he can empty his bladder. He denies any spinal pain. PAST MEDICAL HISTORY: As listed above. ALLERGIES: NONE REPORTED. SOCIAL HISTORY: Unremarkable. FAMILY HISTORY: Noncontributory. MEDICATIONS: Medication list was reviewed. . REVIEW OF SYSTEMS: A 10-system review of systems was otherwise unremarkable. PHYSICAL EXAMINATION: GENERAL: He is a somewhat overweight elderly gentleman, in no acute distress. VITAL SIGNS: Stable. He has been afebrile. HEENT: Within normal limits. NECK: Restricted in rotational movement. No lymphadenopathy noted. EXTREMITIES: No cyanosis, clubbing, or edema. NEUROLOGIC: He was alert and cooperative. Speech is fluent and clear. Cranial nerves 2 through 12 are intact. Motor exam showed 4-/5 strength involving all muscles of the upper extremities. Lower extremity was 3+/5 hip flexion and ankle flexion. Plantar responses were upgoing on the left and equivocal on the right. He was areflexic otherwise. Gait is not testable. No abnormal movements were seen. Sensation was subjectively intact to touch. SUMMARY: Elderly man with progressive quadriplegia over the last few days. He appears to have an upgoing toe on the left suggesting a central lesion. The areflexia is a bit odd, but may be related to his diabetes. We can proceed with further diagnostic testing to sort this out. Job ID: [id number]
[2018-11-08] MEDS: Amiodarone 200 MG TAB PO SCH (20:47)
[2018-11-08] MEDS: Gabapentin 300 MG CAP PO SCH (20:47)
[2018-11-08] MEDS: Atorvastatin Calcium 20 MG TAB PO SCH (20:47)
[2018-11-08] MEDS ORDERED: Cefdinir 300 MG CAP PO SCH (21:00)
[2018-11-09] MEDS: HumaLOG 300 UNITS/3 ML VIAL SC PRN ×4 (07:11→20:27)
[2018-11-09] MEDS: Cefdinir 300 MG CAP PO SCH ×2 (07:11→16:57)
[2018-11-09] MEDS: Lisinopril 2.5 MG TAB PO SCH (09:10)
[2018-11-09] MEDS: predniSONE 20 MG TAB PO SCH (09:13)
[2018-11-09] MEDS: Aspirin 81 mg Enteric Coated Tablet PO SCH (09:13)
[2018-11-09] MEDS: Famotidine 20 MG TAB PO SCH ×2 (09:13→20:26)
[2018-11-09] MEDS: Furosemide 20 MG TAB PO SCH (09:13)
[2018-11-09] MEDS: metFORMIN 500 MG TAB PO SCH ×2 (09:13→16:58)
[2018-11-09] MEDS: Insulin Glargine 40 UNITS in Pre-Filled Syringe 1 EACH SC SCH (09:17)
--- NOTE | 2018-11-09 09:26 | MRI ---
MRI CERVICAL SPINE: INDICATIONS: Neck pain. Cervical radiculopathy. COMPARISON: None. TECHNIQUE: Multiplanar, multisequential imaging of the cervical spine obtained. FINDINGS: There are moderate degenerative changes of the cervical spine. Loss of disk space at all levels. De generative osteophytes from the anterior vertebrae and posterior spondylosis. Mild posterior listhes is at C3-C4 and C4-C5. At C3-C4, there is a posterior disk bulge and spondylosis impinging on the cord and flattening the co rd. Bilateral foraminal narrowing. At C4-C5, posterior listhesis, combined with disk bulge and spondylosis, severely flattens the cord, resulting in severe central canal stenosis and cord impingement. Bilateral foraminal stenosis. At C5-C6, disk bulge and spondylosis impinge on the cord. There is flattening of the cord. Bilatera l foraminal stenosis, more prominent on the right. At C6-C7, slight anterolisthesis. Posterior disk bulge and spondylosis. No significant cord impinge ment. The foramina appear patent. Cord signal is mildly heterogeneous at C3-C4, C4-C5, and C5-C6. I cannot exclude early myelomalacia at these levels. IMPRESSION: Severe central canal stenosis at C3-C4, C4-C5, and C5-C6. Cord impingement is most pronounced at C4- C5. Some mild cord heterogeneity is seen on the T2 sequences, which could represent mild myelomalaci a. POS: OFF
--- NOTE | 2018-11-09 15:33 | PDOC.PN ---
- Subjective Encounter Start Date: 11/09/18 Encounter Start Time: 12:15 Subjective: f/u for LE weakness of unclear etiology, ataxic gait. Feels ok overall -: but still weak and has not ambulated in halls. No fever, incontinence. - Objective Resuscitation Status - Order Detail: 11/07/18 17:04 Resuscitation Status Routine Resuscitation Status: FULL: Full Resuscitation MAR Reviewed: Yes Vital Signs & Weight: Vital Signs (12 hours) Temp Pulse Resp BP BP Pulse Ox 11/09/18 09:10 69 133/59 L 11/09/18 09:09 97.6 F 69 20 133/59 L 94 L Weight Weight 230 lb I&O: 11/08/18 11/09/18 11/10/18 06:59 06:59 06:59 Intake Total 800 Output Total 850 Balance -50 Result Diagrams: 11/07/18 10:44 11/07/18 10:44 Additional Labs: Accuchecks 11/09/18 11/09/18 11/08/18 11:21 05:30 20:50 POC Glucose 177 H 284 H 334 H 11/08/18 16:01 POC Glucose 173 H Radiology Reviewed by me: Yes (MRI C-spine - C3-C6 severe spinal stenosis) Phys Exam - Physical Examination Constitutional: NAD HEENT: PERRLA, sclera anicteric, oral pharynx no lesions Neck: no nodes, no JVD, supple, full ROM Respiratory: no wheezing, no rales, no rhonchi, clear to auscultation bilateral S1, S2 Cardiovascular: RRR, no significant murmur, no rub, gallop Gastrointestinal: soft, non-tender, no distention, positive bowel sounds Musculoskeletal: no edema, pulses present LE 3-4/5 bilat Neurological: normal sensation, moves all 4 limbs Psychiatric: A&O x 3 Skin: normal turgor, cap refill <2 seconds Dx/Plan (1) Weakness of both lower limbs Code(s): R29.898 - OT SYMPTOMS AND SIGNS INVOLVING THE MUSCULOSKELETAL SYSTEM Status: Acute Comment: Likely multifactorial, improved with Prednisone, PT for mobilization, arrange for HH/PT, continue Prednisone (2) DM type 2 with diabetic peripheral neuropathy Code(s): E11.42 - TYPE 2 DIABETES MELLITUS WITH DIABETIC POLYNEUROPATHY Status : Chronic Comment: Increase Gabapentin 900mg HS (3) CKD (chronic kidney disease), stage III Code(s): N18.3 - CHRONIC KIDNEY DISEASE, STAGE 3 (MODERATE) Status: Chronic Comment: Stable, avoid nephrotoxic meds and limit contrast exposure (4) HTN (hypertension) Code(s): I10 - ESSENTIAL (PRIMARY) HYPERTENSION Status: Chronic Qualifiers: Hypertension type: essential hypertension Qualified Code(s): I10 - Essential (primary) hypertension Comment: Resume home BP regimen, serial monitoring (5) UTI (urinary tract infection) Status: Acute Comment: Suspected, Omnicef 300mg BID (6) DJD (degenerative joint disease) of thoracic spine Code(s): M47.814 - SPONDYLOSIS W/O MYELOPATHY OR RADICULOPATHY, THORACIC REGION Status: Chronic Comment: Supportive mgmt, PT for home, fall risk precautions, Neurosurgery for opinion on cervical spinal stenosis - Plan plan discussed w/ family, continue antibiotics, PT/OT, social worker palliative care, out of bed/ambulate, DVT proph w/SCDs Stable currently -: PT for mobilization -: Neurosurgical consultation -: Appreciate Neurology/NS assistance -: Continue Omnicef * .
[2018-11-09] MEDS: Acetaminophen 500 MG TAB PO PRN (20:25)
[2018-11-09] MEDS: Gabapentin 300 MG CAP PO SCH (20:25)
[2018-11-09] MEDS: Atorvastatin Calcium 20 MG TAB PO SCH (20:26)
[2018-11-09] MEDS: Amiodarone 200 MG TAB PO SCH (20:26)
[2018-11-10] MEDS: traMADol HCl 50 MG TAB PO PRN (01:08)
[2018-11-10] MEDS: Cefdinir 300 MG CAP PO SCH ×2 (05:49→18:09)
[2018-11-10] MEDS: Acetaminophen 500 MG TAB PO PRN ×2 (05:49→20:34)
[2018-11-10] MEDS: predniSONE 20 MG TAB PO SCH (09:12)
[2018-11-10] MEDS: Aspirin 81 mg Enteric Coated Tablet PO SCH (09:12)
[2018-11-10] MEDS: Furosemide 20 MG TAB PO SCH (09:12)
[2018-11-10] MEDS: Lisinopril 2.5 MG TAB PO SCH (09:12)
[2018-11-10] MEDS: metFORMIN 500 MG TAB PO SCH ×2 (09:12→18:03)
[2018-11-10] MEDS: Insulin Glargine 40 UNITS in Pre-Filled Syringe 1 EACH SC SCH (09:13)
[2018-11-10] MEDS: Famotidine 20 MG TAB PO SCH ×2 (09:13→20:34)
--- NOTE | 2018-11-10 11:26 | CON ---
DATE OF CONSULTATION: SERVICE: Neurosurgical Service. HISTORY OF PRESENT ILLNESS: Mr. Collado is a 78-year-old man, who is admitted to the hospital significant imbalance and weakness, particularly in the right lower extremity. He reports some on and off history of lower back pain, but nothing profound and now has on rare occasion radiating symptoms in the right lower extremity that would fit either in L3 or potentially L4 pattern, it is obvious when he goes to try to stand up, but he has significant weakness in the right lower extremity. He is unable to flex at the hip without using his hands to abduct, and he also has a similar degree of weakness in the left lower extremity, but nothing nearly as profound on the right. He denies persistent numbness. He denies any significant upper extremity symptoms in the terms of weakness, numbness, or pain, and does not have any cerebellar signs of ataxia. He has a CT of the brain that came back normal. He has an MRI of the thoracic spine, which showed degenerative changes, and then a cervical spine MRI, which shows severe central canal stenosis at several levels. I am not definitively convinced yet that this is cervical myelopathy, however, it certainly could be. It would be prudent, however, to obtain a lumbar spine MRI for better evaluation of possible lower spinal pathology that would create the same syndrome before we proceed with surgical recommendation to decompress the neck. If the lumbar spine MRI comes back negative, I think it is reasonable to keep him in the hospital and set up a posterior cervical decompression on Monday. I discussed this case with Dr. Reyes, who is in agreement. Job ID: [id number]
[2018-11-10] MEDS ORDERED: Ketorolac Tromethamine 30 MG/ML VIAL IVP SCH (12:15)
[2018-11-10] MEDS: HumaLOG 300 UNITS/3 ML VIAL SC PRN ×3 (12:28→20:35)
--- NOTE | 2018-11-10 15:06 | PDOC.PN ---
- Subjective Encounter Start Date: 11/10/18 Encounter Start Time: 11:40 Subjective: f/u for LE weakness, hx of fall and cervical spinal stenosis. States pain -: is increased this am. Not able to sleep well last pm. No fever or chills. - Objective Resuscitation Status - Order Detail: 11/07/18 17:04 Resuscitation Status Routine Resuscitation Status: FULL: Full Resuscitation MAR Reviewed: Yes Vital Signs & Weight: Vital Signs (12 hours) Temp Pulse Resp BP BP Pulse Ox 11/10/18 09:15 94 L 11/10/18 09:12 71 165/82 H 11/10/18 08:24 97.6 F 74 20 165/82 H 94 L Weight Weight 230 lb I&O: 11/09/18 11/10/18 11/11/18 06:59 06:59 06:59 Intake Total 800 1210 Output Total 850 950 Balance -50 260 Result Diagrams: 11/07/18 10:44 11/07/18 10:44 Additional Labs: Accuchecks 11/10/18 11/10/18 11/09/18 11:48 05:25 20:26 POC Glucose 274 H 145 H 293 H 11/09/18 16:55 POC Glucose 245 H Radiology Reviewed by me: Yes (Lumbar spine MRI - pending) Phys Exam - Physical Examination Constitutional: NAD HEENT: PERRLA, sclera anicteric, oral pharynx no lesions Neck: no nodes, no JVD, supple, full ROM Respiratory: no wheezing, no rales, no rhonchi, clear to auscultation bilateral S1, S2 Cardiovascular: RRR, no significant murmur, no rub, gallop Gastrointestinal: soft, non-tender, no distention, positive bowel sounds Musculoskeletal: no edema, pulses present RLE with 3/5 and LLE 4/5 Neurological: normal sensation, moves all 4 limbs Psychiatric: A&O x 3 Skin: normal turgor, cap refill <2 seconds Dx/Plan (1) Weakness of both lower limbs Code(s): R29.898 - [facility] SYMPTOMS AND SIGNS INVOLVING THE MUSCULOSKELETAL SYSTEM Status: Acute Comment: Likely multifactorial, improved with Prednisone, PT for mobilization, Rehab screening due to poor mobility and ongoing fall risk, add Toradol, MRI L-spine pending (2) DM type 2 with diabetic peripheral neuropathy Code(s): E11.42 - TYPE 2 DIABETES MELLITUS WITH DIABETIC POLYNEUROPATHY Status : Chronic Comment: Increase Gabapentin 900mg HS (3) CKD (chronic kidney disease), stage III Code(s): N18.3 - CHRONIC KIDNEY DISEASE, STAGE 3 (MODERATE) Status: Chronic Comment: Stable, avoid nephrotoxic meds and limit contrast exposure (4) HTN (hypertension) Code(s): I10 - ESSENTIAL (PRIMARY) HYPERTENSION Status: Chronic Qualifiers: Hypertension type: essential hypertension Qualified Code(s): I10 - Essential (primary) hypertension Comment: Resume home BP regimen, serial monitoring (5) UTI (urinary tract infection) Status: Acute Comment: Suspected, Omnicef 300mg BID (6) DJD (degenerative joint disease) of thoracic spine Code(s): M47.814 - SPONDYLOSIS W/O MYELOPATHY OR RADICULOPATHY, THORACIC REGION Status: Chronic Comment: Supportive mgmt, PT for home, fall risk precautions, Neurosurgery for opinion on cervical spinal stenosis, consideration for spinal decompression - Plan continue antibiotics, PT/OT, social work program coordinator, out of bed/ambulate, DVT proph w/ SCDs Stable currently -: Add Toradol 30mg IV q6h -: Continue Prednisone -: MRI L-spine pending -: Continue Gabapentin 900mg HS * .
--- NOTE | 2018-11-10 15:47 | MRI ---
MRI OF LUMBAR SPINE PERFORMED WITHOUT CONTRAST ENHANCEMENT: 11/10/18 COMPARISON: A CT examination of 11/07/18. HISTORY: Bilateral lower extremity weakness. Vertebral bodies are normal in height. There is marked degenerative changes along the course of the s pine. there is relative sparing of the L4-5 disc level. There is no significant periaortic adenopathy . The visualized portions of the kidneys show no focal findings. T12-L1: Unremarkable. L1-2: Degenerative facet changes without canal or foraminal stenosis. L2-3: Borderline canal stenosis with degenerative facet changes. No significant foraminal narrowing. L3-4: The canal shows minimal stenosis with degenerative facet change at this level. There is mild bi lateral foraminal narrowing. L4-5: The canal is mildly stenotic. There are prominent degenerative facet and ligamentous hypertroph ic changes. There is mild to moderate left and moderate right foraminal narrowing. L5-S1: No central canal stenosis or any definite significant foraminal narrowing. IMPRESSION: Areas of mild to moderate foraminal stenosis as discussed above. canal stenosis is most pronounced at the L4-5 level. POS: [facility]
[2018-11-10] MEDS: Ketorolac Tromethamine 30 MG/ML VIAL IVP SCH (18:04)
[2018-11-10] MEDS: Gabapentin 300 MG CAP PO SCH (20:34)
[2018-11-10] MEDS: Atorvastatin Calcium 20 MG TAB PO SCH (20:34)
[2018-11-10] MEDS: Amiodarone 200 MG TAB PO SCH (20:34)
[2018-11-10] MEDS: cloNIDine 0.1 MG TAB PO PRN (20:39)
[2018-11-11] MEDS: Ketorolac Tromethamine 30 MG/ML VIAL IVP SCH ×4 (00:59→17:37)
[2018-11-11] MEDS: Cefdinir 300 MG CAP PO SCH ×2 (05:55→17:37)
--- NOTE | 2018-11-11 08:42 | PRG ---
DATE OF SERVICE: Mr. Collado this morning, doing mostly well. He is recumbent in bed and comfortable. He did have his lumbar spine MRI yesterday, which only showed mild degenerative change of most likely to represent additional potentially ankylosing spondylitis as he has fused across the disk space at L5-S1 and has large bridging syndesmophytes anteriorly, essentially in his entire lumbar spine. There is evidence of this in the thoracic spine as well. After review, I feel that more than likely his cervical spine does remain the culprit and we likely need to be surgically addressed. I discussed with him the posterior cervical C4-C6 decompression and we will discuss this with Dr. Reyes later this morning. The patient would like to take time to think it over and talk with his , but as long as they are agreeable and would like to proceed, we will plan to add him tomorrow. He will need to be n.p.o. midnight tonight with consent for posterior cervical C4-C6 decompression. Job ID: [id number]
[2018-11-11] MEDS: Aspirin 81 mg Enteric Coated Tablet PO SCH (08:51)
[2018-11-11] MEDS: predniSONE 20 MG TAB PO SCH (08:51)
[2018-11-11] MEDS: Furosemide 20 MG TAB PO SCH (08:51)
[2018-11-11] MEDS: metFORMIN 500 MG TAB PO SCH ×2 (08:51→17:37)
[2018-11-11] MEDS: Famotidine 20 MG TAB PO SCH ×2 (08:51→19:59)
[2018-11-11] MEDS: Lisinopril 2.5 MG TAB PO SCH (08:51)
[2018-11-11] MEDS: Insulin Glargine 40 UNITS in Pre-Filled Syringe 1 EACH SC SCH (08:52)
[2018-11-11] MEDS: traMADol HCl 50 MG TAB PO PRN (12:12)
[2018-11-11] MEDS: hydrALAZINE 20 MG/ML VIAL SLOW IVP PRN ×2 (12:15→14:25)
[2018-11-11] MEDS: cloNIDine 0.1 MG TAB PO PRN (12:17)
--- NOTE | 2018-11-11 12:23 | PDOC.PN ---
- Subjective Encounter Start Date: 11/11/18 Encounter Start Time: 12:20 Subjective: f/u for LE weakness, fall and cervical spinal stenosis on current Toradol, -: Prednisone, Gabapentin. Slept very well last night. c/o persistent -: RLE pain. - Objective Resuscitation Status - Order Detail: 11/07/18 17:04 Resuscitation Status Routine Resuscitation Status: FULL: Full Resuscitation MAR Reviewed: Yes Vital Signs & Weight: Vital Signs (12 hours) Temp Pulse Resp BP BP Pulse Ox 11/11/18 12:17 193/92 H 11/11/18 12:15 193/92 H 11/11/18 10:55 96 11/11/18 08:51 65 142/77 H 11/11/18 08:45 16 96 11/11/18 07:53 97.8 F 65 20 142/77 H 20 L 11/11/18 04:00 97.5 F L 65 18 148/75 H 95 Weight Weight 230 lb I&O: 11/10/18 11/11/18 11/12/18 06:59 06:59 06:59 Intake Total 1210 1230 Output Total 950 900 Balance 260 330 Result Diagrams: 11/07/18 10:44 11/07/18 10:44 Additional Labs: Accuchecks 11/11/18 11/10/18 11/10/18 05:01 20:13 16:48 POC Glucose 149 H 272 H 203 H Laboratory Tests 11/08/18 11/08/18 11/08/18 06:54 06:54 06:54 Creatine Kinase 198 Vitamin B12 732 Folate 7.20 TSH 3rd Generation 0.3372 L Radiology Reviewed by me: Yes (MRI - L-spine - degenerative changes most prounounced L4-L5) Phys Exam - Physical Examination Constitutional: NAD HEENT: PERRLA, sclera anicteric, oral pharynx no lesions Neck: no nodes, no JVD, supple, full ROM Respiratory: no wheezing, no rales, no rhonchi, clear to auscultation bilateral S1, S2 Cardiovascular: RRR, no significant murmur, no rub, gallop Gastrointestinal: soft, non-tender, no distention, positive bowel sounds Musculoskeletal: no edema, pulses present R>L weakness in hip flexion Neurological: moves all 4 limbs Psychiatric: A&O x 3 Skin: normal turgor, cap refill <2 seconds Dx/Plan (1) Weakness of both lower limbs Code(s): R29.898 - [facility] SYMPTOMS AND SIGNS INVOLVING THE MUSCULOSKELETAL SYSTEM Status: Acute Comment: Likely multifactorial, improved with Prednisone, PT for mobilization, Rehab screening due to poor mobility and ongoing fall risk, add Toradol, MRI L-spine with mild stenosis and osteophytes at all levels (2) DM type 2 with diabetic peripheral neuropathy Code(s): E11.42 - TYPE 2 DIABETES MELLITUS WITH DIABETIC POLYNEUROPATHY Status : Chronic Comment: Increase Gabapentin 900mg HS (3) CKD (chronic kidney disease), stage III Code(s): N18.3 - CHRONIC KIDNEY DISEASE, STAGE 3 (MODERATE) Status: Chronic Comment: Stable, avoid nephrotoxic meds and limit contrast exposure (4) HTN (hypertension) Code(s): I10 - ESSENTIAL (PRIMARY) HYPERTENSION Status: Chronic Qualifiers: Hypertension type: essential hypertension Qualified Code(s): I10 - Essential (primary) hypertension Comment: Resume home BP regimen, serial monitoring (5) UTI (urinary tract infection) Status: Acute Comment: Suspected, Omnicef 300mg BID (6) DJD (degenerative joint disease) of thoracic spine Code(s): M47.814 - SPONDYLOSIS W/O MYELOPATHY OR RADICULOPATHY, THORACIC REGION Status: Chronic Comment: Supportive mgmt, PT for home, fall risk precautions, Neurosurgery for opinion on cervical spinal stenosis, consideration for spinal decompression in 24h - Plan continue antibiotics, PT/OT, social media designer, out of bed/ambulate, DVT proph w/ SCDs Stable overall -: Continue Prednisone -: Continue Toradol -: Considering Cervical decompression surgery -: PT for mobilization * .
[2018-11-11] MEDS: HumaLOG 300 UNITS/3 ML VIAL SC PRN ×2 (17:38→21:43)
[2018-11-11] MEDS: Amiodarone 200 MG TAB PO SCH (19:59)
[2018-11-11] MEDS: Atorvastatin Calcium 20 MG TAB PO SCH (19:59)
[2018-11-11] MEDS: Gabapentin 300 MG CAP PO SCH (20:00)
[2018-11-12] MEDS: Ketorolac Tromethamine 30 MG/ML VIAL IVP SCH ×4 (01:47→17:43)
[2018-11-12] MEDS: Cefdinir 300 MG CAP PO SCH ×2 (05:25→17:43)
[2018-11-12] MEDS: traMADol HCl 50 MG TAB PO PRN ×2 (06:20→20:19)
[2018-11-12] MEDS: Insulin Glargine 40 UNITS in Pre-Filled Syringe 1 EACH SC SCH (08:54)
[2018-11-12] MEDS: metFORMIN 500 MG TAB PO SCH ×2 (08:54→17:43)
[2018-11-12] MEDS: Famotidine 20 MG TAB PO SCH ×2 (08:54→20:21)
--- NOTE | 2018-11-12 09:09 | PRG ---
DATE OF SERVICE: 11/12/2018 SUBJECTIVE: Mr. Collado is a 78-year-old gentleman admitted on November 07 for progressive lower extremity weakness, altered sensation, and gait instability. As part of his evaluation, he had imaging performed of neuraxis the most significant finding of which is in the cervical spine which reveals high-grade cervical stenosis most prominent between C4 and C6 with severe central canal stenosis and underlying signal change. Mr. Collado reports upon my exam with him recent history of falls. He reports progressive weakness of the lower extremities for many days. In addition to weakness, he reports dysesthetic pains, which disproportionately affect his legs more so than his arms and hands. He also has reported slowly progressive weakness of the upper extremity as well. He had an MRI scan also performed of the thoracic and lumbar spine which showed age-appropriate degenerative spine disease, but nothing which I believe would account for his current constellation of symptoms. He is weak enough at this point in time. He has a very difficult time mobilizing independently and will require inpatient rehab. He now had a discussion today regarding his imaging, his diagnosis, and treatment options. I have advocated a surgical decompression of the cervical spine. I did explain to him the purpose of that is to prevent further decline with the hopes that with time and rehab noticed gain in function and improvement in his dysesthetic discomfort. I answered all his questions. I did discuss in detail all the risks, benefits, and alternatives of the surgical procedure. He has provided consent to move forward with the posterior cervical laminectomy spanning C4 to C6. I believe it would be in his best interest to move to inpatient rehab following surgery. Job ID: [id number]
[2018-11-12] MEDS: Aspirin 81 mg Enteric Coated Tablet PO SCH (10:18)
[2018-11-12] MEDS ORDERED: CEFAZOLIN 2 GM/50 ML BAG ONE (11:15)
[2018-11-12] MEDS ORDERED: Bupivacaine HCl 0.5%/Epinephrine 1:200,000/PF 30 ml Vial ONE (11:31)
[2018-11-12] MEDS ORDERED: Fentanyl 100 MCG/2 ML VIAL ONE (11:49)
[2018-11-12] MEDS ORDERED: Promethazine HCl 25 MG/ML VIAL SLOW IVP PRN (13:25)
[2018-11-12] MEDS ORDERED: Meperidine HCl/PF 25 MG/ML VIAL SLOW IVP PRN (13:25)
[2018-11-12] MEDS ORDERED: PACU-Morphine 4MG/ML VIAL SLOW IVP PRN (13:25)
[2018-11-12] MEDS ORDERED: Promethazine HCl 25 MG/ML VIAL IM PRN (13:25)
[2018-11-12] MEDS: predniSONE 20 MG TAB PO SCH (13:44)
[2018-11-12] MEDS: Furosemide 20 MG TAB PO SCH (13:44)
[2018-11-12] MEDS: Lisinopril 2.5 MG TAB PO SCH (13:44)
[2018-11-12] MEDS ORDERED: Glycopyrrolate 0.2 MG/ML 5 ML SYRINGE ONE (15:26)
[2018-11-12] MEDS ORDERED: Ondansetron PF 4 MG/2 ML Vial ONE (15:26)
[2018-11-12] MEDS ORDERED: ePHEDrine 50 MG/ML VIAL ONE (15:26)
[2018-11-12] MEDS ORDERED: PHENYLEPHRINE-NS 100 MCG/ML 10 ML SYRINGE ONE (15:26)
[2018-11-12] MEDS ORDERED: Metoclopramide HCl 10 MG/2 ML VIAL ONE (15:26)
[2018-11-12] MEDS ORDERED: PROPOFOL 200 MG/20 ML VIAL ONE (15:26)
[2018-11-12] MEDS ORDERED: Rocuronium Bromide 10 MG/ML (10ML VIAL) ONE (15:26)
[2018-11-12] MEDS ORDERED: Lidocaine 1% PF 5 ML VIAL ONE (15:26)
[2018-11-12] MEDS ORDERED: CEFAZOLIN 1 GM VIAL SLOW IVP SCH (16:11)
[2018-11-12] MEDS ORDERED: Morphine 4 MG/ML VIAL SLOW IVP PRN (16:23)
[2018-11-12] MEDS ORDERED: CEFAZOLIN 2 GM/50 ML-DEXTROSE 2 GM in Premix Bag 1 BAG IVPB SCH (17:00)
--- NOTE | 2018-11-12 19:39 | PDOC.PN ---
- Subjective Encounter Start Date: 11/12/18 Encounter Start Time: 19:30 Subjective: f/u for cervical spinal stenosis s/p C4-C6 decompression 11/12/18. -: Feels ok overall post-op. - Objective Resuscitation Status - Order Detail: 11/07/18 17:04 Resuscitation Status Routine Resuscitation Status: FULL: Full Resuscitation MAR Reviewed: Yes Vital Signs & Weight: Vital Signs (12 hours) Temp Pulse Resp BP Pulse Ox 11/12/18 15:55 97.8 F 69 18 153/77 H 97 11/12/18 13:44 55 L 11/12/18 08:45 97.6 F 55 L 18 148/73 H 93 L 11/12/18 08:00 93 L Weight Weight 230 lb I&O: 11/11/18 11/12/18 11/13/18 06:59 06:59 06:59 Intake Total 1230 720 240 Output Total 900 800 Balance 330 -80 240 Result Diagrams: 11/07/18 10:44 11/07/18 10:44 Additional Labs: Accuchecks 11/12/18 11/11/18 05:13 21:03 POC Glucose 83 238 H Laboratory Tests 11/08/18 11/08/18 11/08/18 06:54 06:54 06:54 Creatine Kinase 198 Vitamin B12 732 Folate 7.20 TSH 3rd Generation 0.3372 L Phys Exam - Physical Examination Constitutional: NAD HEENT: PERRLA, sclera anicteric, oral pharynx no lesions posterior cervical spine surgical dressing in place Neck: no nodes, no JVD, supple, full ROM Respiratory: no wheezing, no rales, no rhonchi, clear to auscultation bilateral S1, S2 Cardiovascular: RRR, no significant murmur, no rub, gallop Gastrointestinal: soft, non-tender, no distention, positive bowel sounds Musculoskeletal: no edema, pulses present weakness of R>LLE Neurological: normal sensation, moves all 4 limbs Psychiatric: A&O x 3 Skin: normal turgor, cap refill <2 seconds Dx/Plan (1) Weakness of both lower limbs Code(s): R29.898 - [facility] SYMPTOMS AND SIGNS INVOLVING THE MUSCULOSKELETAL SYSTEM Status: Acute Comment: Likely multifactorial, improved with Prednisone, PT for mobilization, Rehab screening due to poor mobility and ongoing fall risk, add Toradol, MRI L-spine with mild stenosis and osteophytes at all levels/ Plan for inpt Rehab transfer in 24h (2) DM type 2 with diabetic peripheral neuropathy Code(s): E11.42 - TYPE 2 DIABETES MELLITUS WITH DIABETIC POLYNEUROPATHY Status : Chronic Comment: Increase Gabapentin 900mg HS (3) CKD (chronic kidney disease), stage III Code(s): N18.3 - CHRONIC KIDNEY DISEASE, STAGE 3 (MODERATE) Status: Chronic Comment: Stable, avoid nephrotoxic meds and limit contrast exposure (4) HTN (hypertension) Code(s): I10 - ESSENTIAL (PRIMARY) HYPERTENSION Status: Chronic Qualifiers: Hypertension type: essential hypertension Qualified Code(s): I10 - Essential (primary) hypertension Comment: Resume home BP regimen, serial monitoring (5) UTI (urinary tract infection) Status: Acute Comment: Suspected, Omnicef 300mg BID (6) DJD (degenerative joint disease) of thoracic spine Code(s): M47.814 - SPONDYLOSIS W/O MYELOPATHY OR RADICULOPATHY, THORACIC REGION Status: Chronic Comment: Supportive mgmt, PT for home, fall risk precautions, Neurosurgery for opinion on cervical spinal stenosis, consideration for spinal decompression in 24h (7) Cervical spinal stenosis Code(s): M48.02 - SPINAL STENOSIS, CERVICAL REGION Status: Chronic Comment: s/p decompression C4-C6, pain control, local wound care - Plan continue antibiotics, PT/OT, social group worker, respiratory therapy, out of bed/ ambulate, DVT proph w/SCDs Stable currently -: Continue pain control as clinically indicated -: Toradol IV prn -: OOB/PT -: Likely to inpt rehab in 24h * .
[2018-11-12] MEDS: Atorvastatin Calcium 20 MG TAB PO SCH (20:21)
[2018-11-12] MEDS: Amiodarone 200 MG TAB PO SCH (20:21)
[2018-11-12] MEDS: Gabapentin 300 MG CAP PO SCH (20:22)
[2018-11-12] MEDS: CEFAZOLIN 2 GM/50 ML-DEXTROSE 2 GM in Premix Bag 1 BAG IVPB SCH (20:26)
[2018-11-13] MEDS: Ketorolac Tromethamine 30 MG/ML VIAL IVP SCH ×4 (00:03→19:17)
[2018-11-13] MEDS: CEFAZOLIN 2 GM/50 ML-DEXTROSE 2 GM in Premix Bag 1 BAG IVPB SCH ×2 (05:15→12:09)
[2018-11-13] MEDS: Cefdinir 300 MG CAP PO SCH ×2 (05:16→19:17)
[2018-11-13] MEDS: traMADol HCl 50 MG TAB PO PRN (06:18)
[2018-11-13] MEDS: metFORMIN 500 MG TAB PO SCH ×2 (08:49→19:17)
[2018-11-13] MEDS: predniSONE 20 MG TAB PO SCH (08:49)
--- NOTE | 2018-11-13 08:52 | PRG ---
DATE OF SERVICE: 11/13/2018 Mr. Collado this morning is postop day #1, following C4-C6 posterior cervical decompression. He has minimal pain or discomfort and overall seems to be much more comfortable than he was preoperatively. He is lying back in the bed right now. He still has as is expected some substantial weakness in his lower extremities. This is what we will need to get him into inpatient rehab for. I had discussed with our colleagues and liaisons there yesterday about him get him there today. I find all transfer paperwork in the instance that he is able to go not delay him in that process. Will follow up with our rehab representatives as well this morning to update the timeline. From our standpoint, he is able to be discharged over there at any point. Job ID: [id number]
[2018-11-13] MEDS: Lisinopril 2.5 MG TAB PO SCH (10:15)
[2018-11-13] MEDS: Furosemide 20 MG TAB PO SCH (10:16)
[2018-11-13] MEDS: Famotidine 20 MG TAB PO SCH (10:16)
[2018-11-13] MEDS: Insulin Glargine 40 UNITS in Pre-Filled Syringe 1 EACH SC SCH (10:17)
[2018-11-13] MEDS: HumaLOG 300 UNITS/3 ML VIAL SC PRN (12:10)
[2018-11-13 16:26] VITALS: BP 155/73; TEMP 98.3
--- NOTE | 2018-11-13 21:30 | PDOC.PN ---
- Subjective Encounter Start Date: 11/13/18 Encounter Start Time: 10:00 Doing well post-op. No pain. - Objective Resuscitation Status - Order Detail: 11/07/18 17:04 Resuscitation Status Routine Resuscitation Status: FULL: Full Resuscitation Vital Signs & Weight: Vital Signs (12 hours) Temp Pulse Resp BP BP Pulse Ox 11/13/18 15:36 98.3 F 85 20 155/73 H 94 L 11/13/18 11:32 97.7 F 88 18 146/78 H 95 11/13/18 10:15 67 135/73 Weight Weight 230 lb I&O: 11/12/18 11/13/18 11/14/18 06:59 06:59 06:59 Intake Total 720 820 Output Total 800 425 Balance -80 395 Result Diagrams: 11/07/18 10:44 11/07/18 10:44 Additional Labs: Accuchecks 11/13/18 11/13/18 11/13/18 15:54 10:46 05:15 POC Glucose 179 H 204 H 110 11/12/18 11:14 POC Glucose 73 Phys Exam - Physical Examination Constitutional: NAD Respiratory: no wheezing, no rales, no rhonchi, clear to auscultation bilateral Cardiovascular: RRR, no significant murmur Gastrointestinal: soft, non-tender, no distention, positive bowel sounds Musculoskeletal: no edema Persistent weakness of LE's bilat. More proximal. Psychiatric: normal affect, A&O x 3 Deviation from normal: Posterior cervical/upper thoracic incision looks good. Dx/Plan (1) Cervical myelopathy Code(s): G95.9 - DISEASE OF SPINAL CORD, UNSPECIFIED Status: Acute (2) Weakness of both lower limbs Code(s): R29.898 - [facility] SYMPTOMS AND SIGNS INVOLVING THE MUSCULOSKELETAL SYSTEM Status: Acute Comment: Likely multifactorial, improved with Prednisone, PT for mobilization, Rehab screening due to poor mobility and ongoing fall risk, add Toradol, MRI L-spine with mild stenosis and osteophytes at all levels/ Plan for inpt Rehab transfer in 24h (3) CKD (chronic kidney disease), stage III Code(s): N18.3 - CHRONIC KIDNEY DISEASE, STAGE 3 (MODERATE) Status: Chronic Comment: Stable, avoid nephrotoxic meds and limit contrast exposure (4) Cervical spinal stenosis Code(s): M48.02 - SPINAL STENOSIS, CERVICAL REGION Status: Chronic Comment: s/p decompression C4-C6, pain control, local wound care (5) DJD (degenerative joint disease) of thoracic spine Code(s): M47.814 - SPONDYLOSIS W/O MYELOPATHY OR RADICULOPATHY, THORACIC REGION Status: Chronic Comment: Supportive mgmt, PT for home, fall risk precautions, Neurosurgery for opinion on cervical spinal stenosis, consideration for spinal decompression in 24h (6) DM type 2 with diabetic peripheral neuropathy Code(s): E11.42 - TYPE 2 DIABETES MELLITUS WITH DIABETIC POLYNEUROPATHY Status : Chronic Comment: Increase Gabapentin 900mg HS (7) HTN (hypertension) Code(s): I10 - ESSENTIAL (PRIMARY) HYPERTENSION Status: Chronic Qualifiers: Hypertension type: essential hypertension Qualified Code(s): I10 - Essential (primary) hypertension Comment: Resume home BP regimen, serial monitoring - Plan * .
--- NOTE | 2018-11-14 13:24 | OP ---
DATE OF PROCEDURE: 11/13/2018 LARD TUB WASHER: Miguel Angel Santoyo PA-C. INDICATION: Prevent neurologic decline. DIAGNOSIS: Cervical spondylitic myelopathy. PROCEDURES: Posterior cervical decompression at C4-C6. ANESTHESIA: General. DESCRIPTION OF PROCEDURE: The patient was brought into the operating room and placed under general anesthesia. He was carefully flipped from the supine to prone position on operating room table while keeping his head and neck in the neutral position. A posterior cervical incision was then planned. After prepping and draping and after an appropriate operative pause, the incision was created. The soft tissues were swept away from midline. A self-retaining retractor was placed in the wound for optimal exposure. After confirming appropriate level with C-arm fluoroscopy, an Adson rongeur as well as a high-speed cutting drill bit as well as 1 and 2 mm Kerrisons were used to perform a laminectomy spanning C4-C6 in order to adequately decompress those segments. After decompression, the wound was irrigated. Hemostasis was maintained throughout. The wound was then closed in anatomic layers and a pressure dressing was applied. There were no known procedural complications. Job ID: [id number]
--- NOTE | 2018-11-14 13:24 | DIS ---
DATE OF ADMISSION: 11/07/2018 DATE OF DISCHARGE: 11/13/2018 DISCHARGE DIAGNOSES: 1. Cervical spinal stenosis. 2. Cervical myelopathy with severe lower extremity weakness, right greater than left. 3. Diabetes mellitus with peripheral neuropathy. 4. Chronic kidney disease stage 3. 5. Hypertension. 6. Urinary tract infection. 7. Degenerative joint disease of the thoracic spine. HISTORY OF PRESENT ILLNESS: This patient is a 78-year-old male, who presented to the emergency department with progressive lower extremity weakness. The patient had been experiencing some mild progressive weakness, but subsequently had a dramatic change with weakness in his lower extremities to the point that he was nonambulatory. The patient was noted to have a history of coronary artery disease, diabetes, paroxysmal atrial fibrillation, hypertension, hyperlipidemia, and reflux. The patient also had a hemicolectomy for a prior colon adenocarcinoma. The patient's initial exam was notable for 3 to 4/5 strength in the lower extremities with absent Babinski bilaterally. No clonus. HOSPITAL COURSE: The patient was admitted with progressive lower extremity weakness. He had an MRI of the thoracic spine performed initially, which revealed degenerative changes and also an indication that there may be some cervical spinal stenosis. Subsequent MRI of the C-spine confirms severe central canal stenosis at C3-C4 through C5-C6, cord impingement being most pronounced at C4-C5 with some heterogeneity seen in the cord. Neurosurgery was consulted and the patient was felt to likely have some cervical myelopathy; however, given the fact it was slightly worse on the right and predominantly in lower extremities, MRI of the lumbar spine was also obtained, areas of mild to moderate foraminal stenosis and some canal stenosis at L4-5 which was considered mild. Given that it was felt that the cervical spinal stenosis was most likely culprit and the patient subsequently underwent decompression of C4 through C6 with laminectomy and subsequently, the patient did well postoperatively, had some expected persistent lower extremity weakness and he was in need of rehab for. Therefore, rehab consult was placed and the patient was accepted. PHYSICAL EXAMINATION: VITAL SIGNS: Temperature 98.3, pulse 85, respirations 20, O2 saturation 94%, blood pressure 155/73. GENERAL APPEARANCE: Age-appropriate male, in no distress. He is awake, alert, oriented, pleasant, and cooperative. HEART: Regular without murmurs. LUNGS: Clear. ABDOMEN: Benign. EXTREMITIES: Warm without edema, but significant weakness in both lower extremities, worse on the right. He had generally mildly diminished sensation, but sensation was intact. DISPOSITION: The patient was discharged to rehab. ACTIVITY: His activity is as tolerated. He is not to lift over 15 pounds. DIET: He has an unrestricted diet. 1. Omeprazole 20 mg a day. 2. Atorvastatin 20 mg at bedtime. 3. Insulin 40 units subcu q.a.m. 4. B12 one sublingual daily. 5. Sertraline 50 mg one p.o. daily. 6. Lasix 20 mg daily. 7. Lisinopril 2.5 daily. 8. Amiodarone 0.5 mg at bedtime. 9. Aspirin 81 mg daily. 10. Gabapentin 600 mg at bedtime. 11. Metformin 1000 mg b.i.d. 12. MiraLAX 17 g daily p.r.n. 13. Tylenol p.r.n. 14. Ibuprofen p.r.n. 15. Polyethylene glycol 17 g daily p.r.n. 16. Tramadol 50 mg q.6h p.r.n. 17. Eliquis 5 mg b.i.d. FOLLOWUP: He will follow up with Dr. John Romero after discharge. He will also follow up with Dr. Reyes in 2 weeks. He can return to the hospital should he have any problems prior to that time. Time spent in discharge activities including coordinating post-discharge follow up plan was 32 minutes. Job ID: [id number] [facility]
--- NOTE | 2018-11-17 18:44 | EKG ---
Test Reason : Blood Pressure : / mmHG Vent. Rate : 060 BPM Atrial Rate : 060 BPM P-R Int : 212 ms QRS Dur : 104 ms QT Int : 540 ms P-R-T Axes : 000 -34 -01 degrees QTc Int : 540 ms Sinus rhythm with 1st degree A-V block Left axis deviation Incomplete right bundle branch block Inferior infarct , age undetermined Abnormal ECG Confirmed by STEVE SUAREZ ([id number]), art editor KATHY JONES ([id number]) on 11/17/2018 6:43:57 PM Referred By: Confirmed By:STEVE SUAREZ
== END 2018-11-13 17:30 | DRG 519 ==
LOC: ERS 09:39 → T4-B 14:21 → SURG A 11-12 14:49
PROVIDERS: ADMIT Family Medicine; ATTEND Family Medicine
PROC: 00NW0ZZ Release Cervical Spinal Cord, Open Approach (ICD-10-PCS; principal; 2018-11-12)
DX: M48.02 Spinal stenosis, cervical region (principal); G99.2 Myelopathy in diseases classified elsewhere; N39.0 Urinary tract infection, site not specified; G95.9 Disease of spinal cord, unspecified; I25.10 Atherosclerotic heart disease of native coronary artery without angina pectoris; E11.42 Type 2 diabetes mellitus with diabetic polyneuropathy; I48.0 Paroxysmal atrial fibrillation; E78.5 Hyperlipidemia, unspecified; K21.9 Gastro-esophageal reflux disease without esophagitis; E11.22 Type 2 diabetes mellitus with diabetic chronic kidney disease; I12.9 Hypertensive chronic kidney disease with stage 1 through stage 4 chronic kidney disease, or unspecified chronic kidney disease; N18.3 Chronic kidney disease, stage 3 (moderate); R29.898 Other symptoms and signs involving the musculoskeletal system; M47.814 Spondylosis without myelopathy or radiculopathy, thoracic region; R27.0 Ataxia, unspecified; Z79.84 Long term (current) use of oral hypoglycemic drugs; Z79.01 Long term (current) use of anticoagulants; I25.2 Old myocardial infarction; Z87.891 Personal history of nicotine dependence; Z85.038 Personal history of other malignant neoplasm of large intestine; Z83.3 Family history of diabetes mellitus
CPT/HCPCS: 36415; 36416; 70450; 71045; 72131; 72141; 72148; 72157; 76000; 80053; 81003; 81015; 82550; 82607; 82746; 83735; 84439; 84443; 84484; 85025; 93005; J0131; J0360; J0670; J1825; J1885; J2001; J2270; J2405; J2704; J2765; J3010; J3490

== ENCOUNTER 2019-10-30 10:45 | Outpatient (CLI) | payer MEDICARE, BC ==
--- NOTE | 2019-10-30 13:14 | CT ---
CT ABDOMEN AND PELVIS WITH IV AND ORAL CONTRAST: HISTORY: Post prandial abdominal pain. COMPARISON: 08/01/2017 FINDINGS: Mild emphysematous changes at the lung bases. Hyperdense stones in the dependent portion of the gallb ladder lumen. Small dystrophic calcifications associated with the pancreas. There is a 2.5 cm cyst at the superior pole of the left kidney. Postoperative changes of the colon with surgical absence of the left colon. Scattered diverticula wit hout adjacent inflammation. Prominent calcification throughout the arterial structures. Prominent deg enerative changes of the lumbar spine. IMPRESSION: 1. Cholelithiasis. No evidence of acute biliary obstruction. 2. Diverticulosis. No evidence of diverticulitis. 3. Postoperative changes of the colon. 4. Chronic pancreatitis. 5. Atherosclerosis. POS: [facility]
[2019-10-30] MEDS ORDERED: Iopamidol 370 76% 100 ML VIAL ONE (15:48)
== END 2019-10-30 10:46 | disposition home or self-care (01) ==
LOC: CT 10:45
PROVIDERS: ATTEND Physician Assistant
DX: R10.84 Generalized abdominal pain (principal); R19.7 Diarrhea, unspecified; R31.9 Hematuria, unspecified; K80.20 Calculus of gallbladder without cholecystitis without obstruction; K57.30 Diverticulosis of large intestine without perforation or abscess without bleeding; I70.0 Atherosclerosis of aorta; K86.1 Other chronic pancreatitis; Z98.890 Other specified postprocedural states; Z85.038 Personal history of other malignant neoplasm of large intestine
CPT/HCPCS: 36415; 74177; 80053; 81015; 83690; 85025; 87086; Q9967

== ENCOUNTER 2019-11-04 08:58 | Day surgery (SDC) | payer MEDICARE, BC ==
[2019-11-01 15:10] VITALS: BMI 30.2
--- NOTE | 2019-11-04 07:48 | HP ---
HISTORY OF PRESENT ILLNESS: Mathew Collado is an 79-year-old male patient, who is well known to me. He presented for diverticulitis, requiring complex treatment in 2017. He now presents with symptomatic cholelithiasis. He is on Eliquis, followed by Dr. Cano for coronary artery disease. The patient has ongoing pain and postprandial epigastric discomfort. CAT scan obtained documents as cholelithiasis and some chronic changes in his pancreas. There is no biliary ductal dilatation noted. The patient had laboratories on 10/30/2019, white count 7, hemoglobin 13, platelet count 115,000. His BUN and creatinine were 11 and 0.97. Bilirubin was slightly elevated at 1.3, otherwise his liver function tests were normal. Lipase was normal. The patient needs to hold his Eliquis for 3 days prior to surgery. His coronary history is that he had a coronary artery bypass grafting years past. He had a catheterization in 2016, noting patent grafts and has a chronic RCA occlusion treated medically. He called Dr. Cano in July 2019. Echocardiogram, 40% ejection fraction. I have talked to Dr. Cano personally on the phone and Dr. Cano states it is safe to proceed with planned laparoscopic cholecystectomy under general anesthesia without further cardiac intervention. The patient will hold his Eliquis three days prior to surgery. He is on Eliquis due to atrial fibrillation. He is followed by Dr. John Romero. The patient came to the office today with his family. MEDICATIONS: 1. Vitamin B12. 2. Atorvastatin. 3. Aspirin 81 mg a day. 4. Furosemide 20 mg a day. 5. Ferrous sulfate 325 mg twice a day. 6. Sertraline 50 mg daily. 7. Lantus SoloStar insulin subcu 30 units a.m., units p.m. 8. Lisinopril 2.5 mg daily. 9. Amiodarone 100 mg at bedtime. 10. Eliquis 5 mg b.i.d. 11. Prilosec 20 mg a day. 12. Gabapentin 600 mg at bedtime. 13. Metformin 500 mg two tablets b.i.d. 14. as needed. PAST MEDICAL HISTORY: Atrial fibrillation; coronary artery disease, stable, followed by Dr. Cano with above-noted findings; cataract surgery; right colon cancer, status post resection with leak in further repeat operation; incisional hernia repair, laparoscopic; hypertension; type 2 diabetes mellitus; and GERD. PAST SURGICAL HISTORY: Coronary artery bypass grafting, tonsillectomy, right colon resection 12 years ago, anastomotic leak requiring reoperation, apparently initial operation performed in [place] and then repeat operations at [facility]. I saw him in August 2006, where he had an enteric fistula, right abdomen, status post right colectomy for colon cancer in [place]. At that point, he underwent resection and drainage of intraabdominal abscess with ileocolic resection with repeat anastomosis, drainage after CT-guided drain had been placed and removed prior to the operation. Subsequently in February 2008, I performed a colonoscopy to splenic flexure, did an ileocolic anastomosis without evidence of further disease. On February 29, 2008, the patient underwent laparoscopic adhesiolysis and laparoscopic 15 x 20 cm Parietex mesh repair of incisional hernia, removal of left subclavian vein MediPort. It was in 2000 that he has coronary artery bypass grafting. On July 31, 2017, the patient presented with extensive soft tissue abscess infection from necrotizing fasciitis in his left buttock and flank, requiring incision, drainage and debridement and placement of wound VAC. 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 He underwent laparotomy, adhesiolysis, old mesh found in the upper abdomen, mobilization of splenic flexure, left colon resection of the distal descending colon and sigmoid colon with end colostomy and Tish pouch and Seprafilm applied. At the same operation, I debrided the skin and subcutaneous tissue from his left buttock and flank wound. On December 06, 2017, the patient underwent laparoscopic adhesiolysis, reversal of colostomy with colorectal anastomosis, 33 mm EEA and skin grafting of his left lateral posterior thigh and buttock. On 11/20/2018, Dr. Nick Reyes performed a C4, C5, C6 posterior cervical decompression. Pathology from his August 03, 2017 surgery revealed diverticulosis, diverticulitis. In November 2017, colonoscopy and polypectomy revealed villous adenomas. On December 06, 2017, colon resection of segment of left colon. There was no significant disease. On 06/13/2018, Dr. Neal performed a colonoscopy and upper endoscopy without significant findings. ALLERGIES: NONE. FAMILY HISTORY: Noncontributory. SOCIAL HISTORY: Tobacco, none. Alcohol, none. The patient is retired. He is . REVIEW OF SYSTEMS: Noncontributory. No cardiac symptoms. PHYSICAL EXAMINATION: VITAL SIGNS: Weight 227 pounds, height 73 inches, 30 BMI, blood pressure 136/53, pulse 60, and temperature 97 degrees. HEAD, EARS, EYES, NOSE, AND THROAT: Unremarkable. LUNGS: Clear to auscultation. CARDIAC: Regular rate and rhythm without murmur or gallop. ABDOMEN: Soft and nontender. Midline scar per above history. Right lateral abdominal incision per above history. Scars, left hip and buttocks, flank from above history. EXTREMITIES: Unremarkable. ASSESSMENT AND PLAN: 1. Symptomatic cholelithiasis, cholecystitis. We would recommend laparoscopic video cholecystectomy after Eliquis held for 3 days. 2. Coronary artery disease stable, followed by Dr. Charla Cano. I have discussed with Dr. Charla Cano today. The patient was last seen by him in July. The patient is safe to proceed without further cardiac evaluation or intervention. He will hold his Eliquis for 3 days preoperatively. The patient understands risks of infection, bleeding, visceral and biliary injury. Consents laparoscopic cholecystectomy. Job ID: [id number]
[2019-11-04] MEDS ORDERED: Acetaminophen 500 MG TAB ONE (09:18)
[2019-11-04] MEDS ORDERED: Ketorolac Tromethamine 30 MG/ML VIAL ONE (09:18)
[2019-11-04] MEDS ORDERED: Levofloxacin 500 mg/D5W 100 ml Premix Bag ONE (09:19)
[2019-11-04] MEDS ORDERED: Glycopyrrolate 0.2 MG/ML 5 ML SYRINGE ONE (09:46)
[2019-11-04] MEDS ORDERED: PROPOFOL 200 MG/20 ML VIAL ONE (09:46)
[2019-11-04] MEDS ORDERED: Dexamethasone 20 MG/5 ML VIAL ONE (09:46)
[2019-11-04] MEDS ORDERED: ePHEDrine/0.9% NaCl/PF SYRINGE 50 mg/10 ml ONE (09:46)
[2019-11-04] MEDS ORDERED: Rocuronium Bromide 10 MG/ML (10ML VIAL) ONE (09:46)
[2019-11-04] MEDS ORDERED: Lidocaine 1% PF 5 ML VIAL ONE (09:46)
[2019-11-04] MEDS ORDERED: Iothalamate Meglumine 60% 50 ML VIAL FS ONE ×2 (10:43→11:45)
[2019-11-04] MEDS ORDERED: Bupivacaine PF 0.5% 30 ML VIAL ONE (10:43)
[2019-11-04] MEDS ORDERED: Lidocaine 1% w/Epinephrine 1:100K 20 ML VIAL ONE (10:43)
[2019-11-04] MEDS ORDERED: Fentanyl 100 MCG/2 ML VIAL ONE (10:53)
--- NOTE | 2019-11-04 13:06 | RAD ---
OPERATIVE CHOLANGIOGRAM: INDICATION: Intraoperative imaging of the biliary ducts. Five fluoroscopic images from OR are presented. FINDINGS: These images show opacification of the common bile duct and the hepatic radicals. There is evidence of filling defect in the distal duct near the ampulla suggesting a returning stone. POS: [facility]
--- NOTE | 2019-11-04 17:46 | OP ---
DATE OF PROCEDURE: 11/04/2019 PREOPERATIVE DIAGNOSES: Symptomatic cholelithiasis and cholecystitis on Eliquis. POSTOPERATIVE DIAGNOSES: Symptomatic cholelithiasis, cholecystitis on Eliquis, and incisional hernia, midline below the umbilicus. ANESTHESIA: General, local 0.5% Marcaine 30 mL mixed with 1% Xylocaine with epinephrine 20 mL. FINDINGS: The patient had small stones. Normal-appearing liver. He did have a small incisional hernia about 2 cm defect in the infraumbilical midline. Upper abdomen without adhesions, previously placed mesh well incorporated without adhesions. DESCRIPTION OF PROCEDURE: The patient was taken to the operating room, where under general anesthesia, abdomen was prepared with ChloraPrep and draped in routine fashion. Local anesthetic was infiltrated in the skin and subcutaneous tissue about the operative site. Right lateral subcostal midclavicular incision made. Pneumoperitoneum to 15 mmHg was obtained with a Veress needle, replaced with a 5 port. There were no adhesions visualized with the laparoscope. Right subxiphoid incision was made and 11 port placed. Right lateral subcostal incision was made and a 5 port placed. Infraumbilical incision was made and a 5 mm port placed. Fundus of the gallbladder was grasped at the cephalad. Adhesions taken down using cautery for hemostasis. Infundibulum was grasped and reflected laterally. Cystic artery and duct dissected free. Critical view obtained. Cystic artery was doubly clipped proximally, singly distally. Cystic duct singly clipped on the gallbladder side. An opening made in the cystic duct. Cholangiocatheter inserted and cholangiograms obtained revealing initially apparent filling defects in the distal duct, thought to be possibly air bubble. This was eventually irrigated with saline and cholangiograms were repeated, the defect persisted although contrast drained easily into the duodenum without further filling defects on the common hepatic, common bile, left and right hepatic ducts. Further irrigation and repeating cholangiograms and the patient had been given glucagon initially revealed that this bubble dissipated and there were no filling defects. Cholangiocatheter removed, though the cystic duct doubly clipped and the cystic artery and duct divided. Critical view had been obtained. Gallbladder and contents removed, submitted to Pathology after dissected free from liver bed using cautery. Final inspection of liver bed revealed good hemostasis. The irrigant and pneumoperitoneum were evacuated. All instruments were removed and all skin incisions were approximated with subdermal 4-0 Monocryl and [place] glue applied. Job ID: [id number]
== END 2019-11-04 14:07 | disposition home or self-care (01) ==
LOC: SDC 08:58
PROVIDERS: ATTEND Specialist
PROC: 0FT44ZZ Resection of Gallbladder, Percutaneous Endoscopic Approach (ICD-10-PCS; principal; 2019-11-04)
PROC: BF101ZZ Fluoroscopy of Bile Ducts using Low Osmolar Contrast (ICD-10-PCS; 2019-11-04)
DX: K80.12 Calculus of gallbladder with acute and chronic cholecystitis without obstruction (principal); K43.2 Incisional hernia without obstruction or gangrene; I25.10 Atherosclerotic heart disease of native coronary artery without angina pectoris; I48.91 Unspecified atrial fibrillation; E11.9 Type 2 diabetes mellitus without complications; K21.9 Gastro-esophageal reflux disease without esophagitis; I10 Essential (primary) hypertension; Z79.01 Long term (current) use of anticoagulants; Z79.4 Long term (current) use of insulin; Z79.82 Long term (current) use of aspirin; Z79.899 Other long term (current) drug therapy; Z95.1 Presence of aortocoronary bypass graft; Z95.5 Presence of coronary angioplasty implant and graft; Z90.49 Acquired absence of other specified parts of digestive tract; Z98.890 Other specified postprocedural states
CPT/HCPCS: 47532; 47563; 82962; 88304; J1610; 36416; J1100; J1885; J1956; J2001; J2704; J3010; S0020

== ENCOUNTER 2020-02-17 15:32 | Outpatient (CLI) | payer MEDICARE, BC ==
--- NOTE | 2020-02-17 16:42 | ULT ---
ABDOMINAL ULTRASOUND: Date: 02-17-2020 Provided Clinical History: Abdominal pain. FINDINGS: The visualized abdominal aorta, IVC, and pancreas appear normal. The liver demonstrates no evidence for mass or intrahepatic biliary ductal dilatation. The common [place] t is not dilated. The gallbladder is not visualized, compatible with provided clinical history of part cholecystectomy. The kidneys demonstrate no evidence for hydronephrosis or mass. Bilateral renal parenchymal volume lo ss and renal enlargement. The spleen is not enlarged and demonstrates no focal abnormality. IMPRESSION: 1. Bilateral renal enlargement and relative cortical volume loss. These findings appear accentuated w ith respect to CT examination dated 10-30-2019. Correlate with concerns for nephritis. 2. Status post cholecystectomy without evidence for abnormality in the gallbladder fossa. POS: [facility]
== END 2020-02-17 15:33 | disposition home or self-care (01) ==
LOC: SCSULT 15:32
PROVIDERS: ATTEND Family Medicine
DX: R10.11 Right upper quadrant pain (principal); N28.89 Other specified disorders of kidney and ureter; Z90.49 Acquired absence of other specified parts of digestive tract; R30.0 Dysuria
CPT/HCPCS: 87086; 93975

== ENCOUNTER 2020-08-27 10:19 | Inpatient (IN) | payer MEDICARE, BC ==
[2020-08-27] MEDS ORDERED: cefTRIAXone\\ROCEPHIN 2 GM VIAL ONE (11:21)
[2020-08-27] MEDS ORDERED: Vancomycin 1 GM/200 ML BAG ONE (11:21)
[2020-08-27 11:43] LABS: ALT (SGPT) 13 U/L (8-55); AST (SGOT) 30 U/L (5-34); Albumin 3.3 g/dL (3.4-4.8); Alkaline Phosphatase 95 U/L (40-110); Anion Gap 18 mmol/L (10-20); BUN (Urea Nitrogen) 14 mg/dL (8.4-25.7); Bilirubin, Total 0.8 mg/dL (0.2-1.2); CK (CPK) 41 U/L (30-200); Calc. Creatinine Clearance 0 mL/min (70-130); Calcium 8.3 mg/dL (7.8-10.44); Carbon Dioxide 23 mmol/L (23-31); Chloride 103 mmol/L (98-107); Estimated GFR-MDRD 63; Glucose 183 mg/dL (83-110); Magnesium 1.2 mg/dL (1.6-2.6); Potassium 3.8 mmol/L (3.5-5.1); Protein, Total 6.3 g/dL (5.8-8.1); Sodium 140 mmol/L (136-145)
[2020-08-27 11:44] LABS: #Lymphocytes 0.4 thou/uL (1.20-3.40); #Monocytes 0.2 thou/uL (0.11-0.59); #Neutrophils 4.7 thou/uL (1.40-6.50); %Eosinophils 0.1 % (0.0-10.0); %Monocytes 4.2 % (0.0-10.0); %Neutrophils 88.7 % (42.0-75.0); Hemoglobin 13.5 g/dL (14.0-18.0); Mean Corpuscular HGB CONC 32.1 g/dL (32.0-36.0); Mean Corpuscular Hemoglobin 29.1 pg (27.0-31.0); Mean Corpuscular Volume 90.6 fL (78.0-98.0); Mean Platelet Volume 10.6 fL (7.4-10.4); Platelet Count 104 thou/uL (130-400); Platelet Morphology Comment Appears Decreased; RBC Distribution Width 13.9 % (11.5-14.5); RBC Morphology Normal; Red Blood Cell (RBC) Count 4.64 mill/uL (4.70-6.10); White Blood Cell (WBC) Count 5.3 thou/uL (4.8-10.8)
[2020-08-27 12:03] LABS: CKMB 2.2 ng/mL (0-6.6)
--- NOTE | 2020-08-27 12:22 | RAD ---
CHEST 1 VIEW: Date: 08/27/2020 HISTORY: Emergency examination. COMPARISON: Prior exam dated 11/07/2018. FINDINGS: There is cardiomegaly with pulmonary vascular congestion. There is air space disease involving the le ft mid lung, right upper lobe, and right lower lobe. There are small bilateral pleural effusions, lef t greater than right. IMPRESSION: 1. Cardiomegaly with pulmonary vascular congestion and small bilateral pleural effusions may reflect CHF. 2. Air space opacity left mid lung, right upper lobe, and right lower lobe, may reflect air space ed sheron; however, pneumonia is not entirely excluded. POS: [facility]
[2020-08-27] MEDS ORDERED: Magnesium 2 GM/50 ML BAG (IN WATER) ONE (13:25)
[2020-08-27] MEDS ORDERED: Acetaminophen 325 MG TAB PO PRN (14:23)
[2020-08-27 14:56] LABS: Bilirubin Negative (Negative); Blood, Urine Negative (Negative); Clarity Clear (Clear); Glucose, Urine (Dipstick) Normal (Negative); Ketone, Urine Negative (Negative); Leukocyte Negative Leu/uL (Negative); Nitrite Negative (Negative); Protein, Urine (Dipstick) Negative (Neg-Trace); Urobilinogen Normal mg/dL (Less than 2)
--- NOTE | 2020-08-27 15:14 | PDOC.HHP ---
Hospitalist HPI - History of Present Illness Falls History of Present Illness: Patient is a 80-year-old male with a history of atrial fibrillation and coronary artery disease. He was diagnosed with Covid 11 days ago. He reports that he has been completely asymptomatic. He denies any shortness of breath or cough. Reported that 2 days ago however he fell. At that time he felt he just missed his chair. He subsequently had another episode today in which she felt "woozy". He reports that he frequently has woozy spells. Today he actually became so wheezy that he fell. He was unable to get himself up. He crawled to his bathroom where he had some grab bars and was able to pull himself up that way. He continued to feel somewhat woozy so he came to the emergency department. In the emergency department he appeared to be in atrial fibrillation with a heart rate of 115. Subsequently his heart rate has improved and he feels completely normal. ED Course: Chest x-ray was abnormal and he was given vancomycin and Ceftin. Is also given magnesium for slightly low levels. Hospitalist ROS - Review of Systems Constitutional: denies: fever, chills Cardiovascular: denies: chest pain, palpitations Gastrointestinal: denies: nausea, vomiting, abdominal pain, diarrhea, constipation Neurological: denies: weakness All other systems reviewed; all pertinent +/- noted in HPI/Subj - Medication Medications: metFORMIN TABLET : Strength - 1,000 mg : ORAL Patient Dose: 1000 mg Oral 2 times a day. atorvastatin TABLET : Strength - 10 mg : ORAL Patient Dose: 1 tab(s) Oral once a day (in the evening). PriLOSEC capsule,delayed release CAPSULE,DELAYED RELEASE (ENTERIC COATED) : Strength - 20 mg : ORAL Patient Dose: 1 tab(s) Oral once a day. aspirin Oral TABLET : Strength - 81 mg : ORAL Patient Dose: 1 tab(s) Oral once a day. Lantus CARTRIDGE (ML) : Strength - 100 unit/mL : SUBCUTANEOUS Patient Dose: 15 units Oral once a day. gabapentin TABLET : Strength - 600 mg : ORAL Patient Dose: Unknown. furosemide oral TABLET : Strength - 20 mg : ORAL Patient Dose: Unknown. amiodarone oral TABLET : Strength - 100 mg : ORAL Patient Dose: Unknown. Eliquis TABLET : Strength - 5 mg : ORAL Patient Dose: 2 times a day. sertraline TABLET : Strength - 50 mg : ORAL Patient Dose: once a day. lisinopril tablet : Strength - 10 mg : ORAL Patient Dose: 10 mg Oral once a day (in the morning). Hospitalist History - Past Medical History Other Medical History: History of coronary artery disease status post ID, ejection fraction around 40%. Repeat cath revealing significant [place] disease and disease of the LAD venous bypass. TAVAREZ is still patent. History of colon cancer status post bowel resection chemotherapy. History of diverticulitis with necrotizing fasciitis wide debridement and colonostomy. History of paroxysmal atrial fibrillation. Hypertension. Hyperlipidemia. GERD. - Past Surgical History Other Surgical History: History of hemicolectomy secondary to colon adenoma. History of laparotomy with open debridement for necrotizing fasciitis. History of right shoulder repair. Coronary artery bypass grafting. Incisional hernia with subsequent repair. 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 Lap ryan in October 2019. - Family History Other Family History: His parents lived to be quite elderly. His sister of complications of diabetes. - Social History Smoking Status: Former smoker (Quit over 18 years ago) Alcohol: reports: None Drugs: reports: none - Exam General Appearance: NAD, awake alert Neck: supple, symmetric, no JVD, no thyromegaly, no lymphadenopathy, no carotid bruit Heart: RRR, no murmur, no gallops, no rubs, normal peripheral pulses Respiratory: no wheezes, no ronchi, normal chest expansion, no tachypnea, rales (Very fine scattered bilateral rales.) Gastrointestinal: soft, non-tender, non-distended, normal bowel sounds, no palpable masses, no hepatomegaly, no splenomegaly Extremities: no cyanosis, no clubbing, no edema Neurological: no focal deficits Musculoskeletal: normal tone, normal strength, no muscle wasting Psychiatric: normal affect, normal behavior, A&O x 3 Hospitalist Results - Labs Result Diagrams: 08/27/20 11:08/27/20 11:06 Lab results: WBC 5.3 thou/uL (4.8-10.8) 08/27/20 11:06 Hgb 13.5 g/dL (14.0-18.0) L 08/27/20 11:06 Hct 42.1 % (42.0-52.0) 08/27/20 11:06 MCV 90.6 fL (78.0-98.0) 08/27/20 11:06 Plt Count 104 thou/uL (130-400) L 08/27/20 11:06 Neutrophils % 88.7 % (42.0-75.0) H 08/27/20 11:06 Sodium 140 mmol/L (136-145) 08/27/20 11:06 Potassium 3.8 mmol/L (3.5-5.1) 08/27/20 11:06 Chloride 103 mmol/L (98-107) 08/27/20 11:06 Carbon Dioxide 23 mmol/L (23-31) 08/27/20 11:06 BUN 14 mg/dL (8.4-25.7) 08/27/20 11:06 Creatinine 1.12 mg/dL (0.7-1.3) 08/27/20 11:06 Glucose 183 mg/dL (83-110) H 08/27/20 11:06 Lactic Acid 5.3 mmol/L (0.5-2.2) H* 08/27/20 11:06 Calcium 8.3 mg/dL (7.8-10.44) 08/27/20 11:06 Total Bilirubin 0.8 mg/dL (0.2-1.2) 08/27/20 11:06 AST 30 U/L (5-34) 08/27/20 11:06 ALT 13 U/L (8-55) 08/27/20 11:06 Alkaline Phosphatase 95 U/L (40-110) 08/27/20 11:06 Creatine Kinase 41 U/L (30-200) 08/27/20 11:06 CK-MB (CK-2) 2.2 ng/mL (0-6.6) 08/27/20 11:06 Troponin I 0.049 ng/mL (< 0.028) H 08/27/20 11:06 Serum Total Protein 6.3 g/dL (5.8-8.1) 08/27/20 11:06 Albumin 3.3 g/dL (3.4-4.8) L 08/27/20 11:06 - EKG Interpretation EKG: Atrial fibrillation at [address] and T wave abnormalities that are nonspecific. - Radiology Interpretation Chest x-ray Status: image reviewed by me, report reviewed by me Additional Comment: Cardiomegaly with pulmonary vascular congestion and small bilateral pleural effusions possibly reflecting CHF. Airspace opacity in left midlung right upper lobe and right lower lobe which may reflect airspace edema however pneumonia is not entirely excluded. Hospitalist H&P A/P - Problem (1) Near syncope Status: Acute (2) Atrial fibrillation with rapid ventricular response Code(s): I48.91 - UNSPECIFIED ATRIAL FIBRILLATION Status: Acute (3) History of colon cancer Code(s): Z85.038 - PERSONAL HISTORY OF MALIGNANT NEOPLASM OF LARGE INTESTINE Status: Acute (4) Hyperthyroidism Code(s): E05.90 - THYROTOXICOSIS, UNSP WITHOUT THYROTOXIC CRISIS OR STORM Status: Acute (5) DM type 2 with diabetic peripheral neuropathy Code(s): E11.42 - TYPE 2 DIABETES MELLITUS WITH DIABETIC POLYNEUROPATHY Status: Chronic (6) HTN (hypertension) Code(s): I10 - ESSENTIAL (PRIMARY) HYPERTENSION Status: Chronic Qualifiers: Hypertension type: essential hypertension Qualified Code(s): I10 - Essential (primary) hypertension (7) Pneumonia due to COVID-19 virus Code(s): U07.1 - COVID-19; J12.89 - OTHER VIRAL PNEUMONIA Status: Acute (8) Lactic acidosis Code(s): E87.2 - ACIDOSIS Status: Acute - Plan Plan: Near syncope: Patient had an episode of feeling "woozy" and had a fall. He was too weak to get himself up. Its not clear that he ever actually lost consciousness. He was noted to be in atrial fibrillation with rapid ventricular response upon arrival to the emergency department. His symptoms have improved and his rate and rhythm have resolved to normal. Is a rhythm related issue. Very nonspecific however. Could also have some Covid related symptoms. We will keep him on telemetry. Keep him in observation. Serial troponins. A. fib with RVR: Resolved. Patient is on amiodarone at low-dose. Discussed the case with his flow specialist, Dr. Cano, and he recommends increasing his amiodarone for now. We will need to watch his thyroid levels. Continue Eliquis. Hyperthyroidism: May be a result of the amiodarone he is currently taking. We will need to watch that over time. Dr. Cano is aware. COVID-19 pneumonia: Currently the patient remains completely asymptomatic on day 11 since his test. There is no indication for treatment at this time. There is no indication for antibiotics. We will continue to monitor for signs of hypoxia. Lactic acidosis: Possibly due to some hypoperfusion from his A. fib episode. Will recheck. At this point does not appear to have a significant bacterial infection driving this. Do not suspect sepsis says his tachycardia was due to atrial fibrillation. Hypertension: Continue with his usual home regimen.
[2020-08-27 15:31] VITALS: BMI 28.3
[2020-08-27] MEDS: Sodium Chloride 0.9% 1,000 ML IV SCH (15:44)
[2020-08-27 15:46] LABS: Lactic Acid 1.8 mmol/L (0.5-2.2)
[2020-08-27 15:52] LABS: Troponin I 0.057 ng/mL (< 0.028)
[2020-08-27] MEDS: metFORMIN 500 MG TAB PO SCH (17:11)
[2020-08-27 19:04] LABS: Troponin I 0.044 ng/mL (< 0.028)
[2020-08-27] MEDS: Insulin Glargine 8 UNITS in Pre-Filled Syringe SC SCH (20:47)
[2020-08-27] MEDS: Atorvastatin Calcium 20 MG TAB PO SCH (20:48)
[2020-08-27] MEDS: Amiodarone 200 MG TAB PO SCH (20:48)
[2020-08-27] MEDS: Apixaban 5 MG TAB PO SCH (20:48)
[2020-08-27] MEDS: Famotidine 20 MG TAB PO SCH (20:48)
[2020-08-27] MEDS: Gabapentin 300 MG CAP PO SCH (20:49)
[2020-08-27] MEDS ORDERED: Lisinopril 10 MG TAB PO SCH (21:00)
[2020-08-27] MEDS ORDERED: Famotidine 20 MG TAB PO SCH (21:00)
[2020-08-28] MEDS: Sodium Chloride 0.9% 1,000 ML IV SCH (03:19)
[2020-08-28 05:40] LABS: Anion Gap 14 mmol/L (10-20); BUN (Urea Nitrogen) 13 mg/dL (8.4-25.7); Calc. Creatinine Clearance 97 mL/min (70-130); Calcium 7.7 mg/dL (7.8-10.44); Carbon Dioxide 20 mmol/L (23-31); Chloride 109 mmol/L (98-107); Estimated GFR-MDRD 90; Potassium 3.2 mmol/L (3.5-5.1); Sodium 140 mmol/L (136-145)
[2020-08-28 05:43] LABS: Glucose 58 mg/dL (83-110)
[2020-08-28 05:58] LABS: #Lymphocytes 0.6 thou/uL (1.20-3.40); #Monocytes 0.2 thou/uL (0.11-0.59); #Neutrophils 5.3 thou/uL (1.40-6.50); %Eosinophils 0.1 % (0.0-10.0); %Lymphocytes 9.7 % (21.0-51.0); %Monocytes 3.4 % (0.0-10.0); %Neutrophils 86.8 % (42.0-75.0); Hemoglobin 12.2 g/dL (14.0-18.0); Mean Corpuscular HGB CONC 32.6 g/dL (32.0-36.0); Mean Corpuscular Hemoglobin 29.1 pg (27.0-31.0); Mean Corpuscular Volume 89.3 fL (78.0-98.0); Mean Platelet Volume 10.3 fL (7.4-10.4); Platelet Count 84 thou/uL (130-400); Platelet Morphology Comment Appears Decreased; RBC Distribution Width 13.7 % (11.5-14.5); Red Blood Cell (RBC) Count 4.18 mill/uL (4.70-6.10); White Blood Cell (WBC) Count 6.1 thou/uL (4.8-10.8)
[2020-08-28] MEDS: Insulin Glargine 30 UNITS in Pre-Filled Syringe SC SCH (06:08)
[2020-08-28] MEDS: Furosemide 20 MG TAB PO SCH (08:12)
[2020-08-28] MEDS: Amiodarone 200 MG TAB PO SCH ×2 (08:13→21:36)
[2020-08-28] MEDS: Aspirin 81 mg Enteric Coated Tablet PO SCH (08:13)
[2020-08-28] MEDS: Cyanocobalamin (Vitamin B-12) 1,000 MCG TAB PO SCH (08:13)
[2020-08-28] MEDS: metFORMIN 500 MG TAB PO SCH ×2 (08:13→17:03)
[2020-08-28] MEDS: Apixaban 5 MG TAB PO SCH ×2 (08:13→21:39)
[2020-08-28] MEDS: Famotidine 20 MG TAB PO SCH ×2 (08:13→21:37)
[2020-08-28] MEDS: Iron Polysaccharides Complex 150 MG CAP PO SCH (08:14)
[2020-08-28] MEDS ORDERED: hydrALAZINE 20 MG/ML VIAL SLOW IVP PRN (12:33)
--- NOTE | 2020-08-28 12:35 | PDOC.HOSPP ---
- Subjective Encounter Date: 08/28/20 Encounter Time: 09:45 Subjective: Patient has no symptoms. He denies any chest pain or shortness of breath. He does have some hard of hearing. His blood pressure is quite elevated. His pulses in the 90s. Satting 93% with room air. - Objective Vital Signs & Weight: Vital Signs (12 hours) Temp Pulse Resp BP Pulse Ox 08/28/20 12:26 98.8 F 94 18 192/93 H 93 L 08/28/20 08:26 98.1 F 93 20 138/76 93 L 08/28/20 03:20 98.2 F 94 20 161/75 H 95 Weight Weight 214 lb 3.2 oz I&O: 08/27/20 08/28/20 08/29/20 06:59 06:59 06:59 Intake Total 2270 Output Total 600 Balance 1670 Result Diagrams: 08/28/20 05:07 08/28/20 05:07 Additional Labs: Accuchecks 08/28/20 08/28/20 08/28/20 10:43 05:51 05:07 POC Glucose 151 H 81 63 L 08/27/20 08/27/20 20:38 15:43 POC Glucose 119 H 106 H Hospitalist ROS - Medication Medications: Active Medications Generic Name Dose Route Start Last Admin Trade Name Benq PRN Reason Stop Dose Admin Acetaminophen 650 mg 08/27/20 14:23 08/27/20 20:47 Acetaminophen 325 Mg Tab PO 650 mg Q4H PRN Administration Headache/Fever/Mild Pain (1-3) Amiodarone HCl 200 mg 08/27/20 21:00 08/28/20 08:13 Amiodarone 200 Mg Tab PO 200 mg BID MADALYN Administration Apixaban 5 mg 08/27/20 21:00 08/28/20 08:13 Apixaban 5 Mg Tab PO 5 mg BID MADALYN Administration Aspirin 81 mg 08/28/20 09:00 08/28/20 08:13 Aspirin 81 Mg Enteric Coated Tablet PO 81 mg DAILY MDAALYN Administration Atorvastatin Calcium 20 mg 08/27/20 21:00 08/27/20 20:48 Atorvastatin Calcium 20 Mg Tab PO 20 mg HS MADALYN Administration Cyanocobalamin 1,000 mcg 08/28/20 09:00 08/28/20 08:13 Cyanocobalamin (Vitamin B-12) 1,000 Mcg Tab PO 1,000 mcg DAILY MADALYN Administration Famotidine 20 mg 08/27/20 21:00 08/28/20 08:13 Famotidine 20 Mg Tab PO 20 mg BID MADALYN Administration Furosemide 20 mg 08/28/20 09:00 08/28/20 08:12 Furosemide 20 Mg Tab PO 20 mg DAILY MADALYN Administration Gabapentin 600 mg 08/27/20 21:00 08/27/20 20:49 Gabapentin 300 Mg Cap PO 600 mg HS MADALYN Administration Sodium Chloride 1,000 mls @ 75 mls/hr 08/27/20 14:30 08/28/20 03:19 Normal Saline 0.9% IV 1,000 mls .[id number] MADALYN Administration Insulin Glargine 30 units/ 0.3 mls @ 0 mls/hr 08/28/20 09:00 08/28/20 06:08 Miscellaneous Medication SC Not Given QAM MADALYN Insulin Glargine 8 units/ 0.08 mls @ 0 mls/hr 08/27/20 21:00 08/27/20 20:47 Miscellaneous Medication SC 0.08 mls HS MADALYN Administration Lisinopril 10 mg 08/27/20 21:00 08/27/20 20:50 Lisinopril 10 Mg Tab PO 10 mg HS MADALYN Administration Metformin HCl 1,000 mg 08/27/20 17:00 08/28/20 08:13 Metformin 500 Mg Tab PO 1,000 mg BID-WM MADALYN Administration Pantoprazole Sodium 40 mg 08/28/20 09:00 08/28/20 08:13 Pantoprazole 40 Mg Tab PO 40 mg DAILY MADALYN Administration Polysaccharide Iron Complex 150 mg 08/28/20 08:00 08/28/20 08:14 Iron Polysaccharides Complex 150 Mg Cap PO 150 mg QAM-WM MADALYN Administration Sertraline HCl 50 mg 08/28/20 09:00 08/28/20 08:13 Sertraline Hcl 100 Mg Tab PO 50 mg DAILY MADALYN Administration - Exam General Appearance: NAD, awake alert Eye: PERRL ENT: normocephalic atraumatic Neck: supple Heart: normal peripheral pulses Heart - other findings: Tachycardia Respiratory: CTAB Gastrointestinal: soft, normal bowel sounds Neurological: no focal deficits Musculoskeletal: generalized weakness Psychiatric: A&O x 3 Hosp A/P - Plan 1) Near syncope Status: Acute (2) Atrial fibrillation with rapid ventricular response Code(s): I48.91 - UNSPECIFIED ATRIAL FIBRILLATION Status: Acute (3) History of colon cancer Code(s): Z85.038 - PERSONAL HISTORY OF MALIGNANT NEOPLASM OF LARGE INTESTINE Status: Acute (4) Hyperthyroidism Code(s): E05.90 - THYROTOXICOSIS, UNSP WITHOUT THYROTOXIC CRISIS OR STORM Status: Acute (5) DM type 2 with diabetic peripheral neuropathy Code(s): E11.42 - TYPE 2 DIABETES MELLITUS WITH DIABETIC POLYNEUROPATHY Status: Chronic (6) HTN (hypertension) Code(s): I10 - ESSENTIAL (PRIMARY) HYPERTENSION Status: Chronic Qualifiers: Hypertension type: essential hypertension Qualified Code(s): I10 - Essential (primary) hypertension (7) Pneumonia due to COVID-19 virus Code(s): U07.1 - COVID-19; J12.89 - OTHER VIRAL PNEUMONIA Status: Acute (8) Lactic acidosis Code(s): E87.2 - ACIDOSIS Status: Acute - Plan Plan: Near syncope: Patient had an episode of feeling "woozy" and had a fall. He was too weak to get himself up. Its not clear that he ever actually lost consciousness. He was noted to be in atrial fibrillation with rapid ventricular response upon arrival to the emergency department. His symptoms have improved and his rate and rhythm have resolved to normal. Is a rhythm related issue. Very nonspecific however. Could also have some Covid related symptoms. We will keep him on telemetry. Keep him in observation. Serial troponins. A. fib with RVR: -Currently pulse in the 90s. With occasional 100 range. Amiodarone dose increased. Will also provide as needed Lopressor. d/w Dr. Cano by admitting provider, and he recommends increasing his amiodarone for now. We will need to watch his thyroid levels. Continue Eliquis. Hyperthyroidism: May be a result of the amiodarone he is currently taking. We will need to watch that over time. Dr. Cano is aware. COVID-19 pneumonia: -asymptomatic on day 11 since his test. -Monitor closely. -No steroid or antibiotic as clinically not required at this time. Abnormal troponin with a level of 0.044 -Perhaps due to A. fib. Again follow-up with cardiology input. Consult placed.- Accelerated hypertension -Patient on lisinopril which I have increased slightly. Amiodarone dose increa sed. Systolic blood pressure in the 190 range.-We will provide with as needed in addition to the above medication changes. 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 I will consult Dr. Cano as well. -LFTs are in the normal range Hypokalemia replace the potassium. Hypocalcemia -Give a dose of calcium gluconate. Full code.
[2020-08-28] MEDS ORDERED: Potassium Chloride 20 MEQ TAB PO SCH ×2 (12:45→18:00)
[2020-08-28] MEDS ORDERED: Calcium Gluc 4.6 MEQ/10 ML (100 MG/ML) SLOW IVP SCH (12:45)
--- NOTE | 2020-08-28 14:51 | ULT ---
Exam: Thyroid ultrasound HISTORY: Patient on Amiodarone. Evaluate for goiter. COMPARISON: None. FINDINGS: Right thyroid lobe: 2.2 x 3.6 x 1.1 cm. Left thyroid lobe: 2.1 x 4.5 x 2.1 cm. Thyroid isthmus: 1.2 cm. Thyroid nodules: Right thyroid lobe: 1.0 x 0.5 x 0.7 hypoechoic nodule in the inferior pole the right thyroid lobe, wi th a solid echotexture. IMPRESSION: TI-RADS Category 3 -mildly suspicious finding. Follow-up ultrasound in one year. Transcribed Date/Time: 08/28/2020 3:10 PM
[2020-08-28] MEDS ORDERED: Furosemide 20 MG/2 ML VIAL SLOW IVP SCH (15:45)
[2020-08-28] MEDS: Metoprolol Tartrate 5 MG/5 ML VIAL IVP PRN (17:11)
--- NOTE | 2020-08-28 18:29 | CON ---
DATE OF CONSULTATION: 08/28/2020 REASON FOR CONSULTATION: Paroxysmal atrial fibrillation, recent diagnosis of COVID infection, coronary artery disease. HISTORY OF PRESENT ILLNESS: Mr. Collado came to the emergency room yesterday, complaining of intermittent episodes of lightheadedness and feeling weak. He had one episode of being unable to get up from the floor. He is brought to the hospital. He was found to have atrial fibrillation with a rate of about 110 beats per minute. He is hospitalized for evaluation and therapy. PAST HISTORY: 1. Congestive heart failure, systolic and diastolic mixed. Most recent ejection fraction 40%. 2. Coronary artery disease, best treated medically. Please see previous notes. He has had previous bypass surgery. He had acute inferior infarction many years ago. He was out of town when that happened. The graft had closed. The tolowa dee-ni' vessel was opened, but later restenosed, shut his medical therapy is appropriate. The catheterization was done in 2016, revealed LAD 95% with a patent internal mammary, circumflex small, no obstructive coronary artery disease, right coronary occluded, fills via collaterals from the left. 3. The patient has had some history of tachycardia and bradycardia. At some point, it was thought he potentially might need a pacemaker, but by reducing amiodarone dose, he had been able to avoid that. MEDICATIONS AT HOME: 1. Amiodarone 100 mg a day. 2. Atorvastatin 20 mg a day. 3. Furosemide 20 mg a day. 4. Lisinopril 10 mg a day. 5. Aspirin 81 mg a day. 6. Apixaban 5 mg twice a day. 7. Insulin. 8. Iron. REVIEW OF SYSTEMS: CONSTITUTIONAL: Positive for weakness and fatigue. VISION: No changes. HEARING: No changes. PULMONARY: No cough or wheezing. GASTROINTESTINAL: No nausea, vomiting, or diarrhea. SKIN: No rashes. NEUROLOGIC: No unilateral weakness or numbness. PSYCHIATRIC: No unusual depression or anxiety. PHYSICAL EXAMINATION: GENERAL: This is an 80-year-old gentleman, resting comfortably. VITAL SIGNS: His blood pressure 190/90, pulse 90s. LUNGS: Clear. CARDIAC: Normal S1 and normal S2. ABDOMEN: Soft and nontender. He is obese. EXTREMITIES: No clubbing or cyanosis. There is only minimal edema. LABORATORY DATA: Potassium level was low at 3.2. ASSESSMENT: 1. Paroxysmal atrial fibrillation. 2. Recent COVID infection. 3. Hypokalemia. 4. Hypertension. 5. Congestive heart failure, systolic and diastolic mixed. PLAN: 1. We will give him one dose of Lasix. 2. Increase amiodarone. 3. Need to follow thyroid levels as he is becoming somewhat hyperthyroid. This could potentially be related to amiodarone. If this worsens, we have plans to take him off amiodarone and place a pacemaker and try to more aggressively block him with beta blockers and possibly calcium blockers, although could be detrimental to his heart failure. For now, treat him as outlined above. Hopefully be released home tomorrow. Job ID: [id number]
[2020-08-28] MEDS ORDERED: Lisinopril 20 MG TAB PO SCH (21:00)
[2020-08-28] MEDS: Gabapentin 300 MG CAP PO SCH (21:37)
[2020-08-28] MEDS: Atorvastatin Calcium 20 MG TAB PO SCH (21:39)
[2020-08-28] MEDS: Insulin Glargine 8 UNITS in Pre-Filled Syringe SC SCH (21:43)
[2020-08-29] MEDS: Metoprolol Tartrate 5 MG/5 ML VIAL IVP PRN (00:15)
[2020-08-29 05:42] LABS: #Lymphocytes 0.8 thou/uL (1.20-3.40); #Monocytes 0.4 thou/uL (0.11-0.59); #Neutrophils 9.9 thou/uL (1.40-6.50); %Lymphocytes 6.9 % (21.0-51.0); %Monocytes 3.2 % (0.0-10.0); %Neutrophils 89.9 % (42.0-75.0); Mean Corpuscular HGB CONC 30.7 g/dL (32.0-36.0); Mean Corpuscular Hemoglobin 27.5 pg (27.0-31.0); Mean Corpuscular Volume 89.5 fL (78.0-98.0); Mean Platelet Volume 10.6 fL (7.4-10.4); Platelet Count 144 thou/uL (130-400); RBC Distribution Width 13.9 % (11.5-14.5); Red Blood Cell (RBC) Count 4.75 mill/uL (4.70-6.10)
[2020-08-29] MEDS: Aspirin 81 mg Enteric Coated Tablet PO SCH (10:48)
[2020-08-29] MEDS: Insulin Glargine 30 UNITS in Pre-Filled Syringe SC SCH (10:48)
[2020-08-29] MEDS: Iron Polysaccharides Complex 150 MG CAP PO SCH (10:48)
[2020-08-29] MEDS: Amiodarone 200 MG TAB PO SCH (10:49)
[2020-08-29] MEDS: Famotidine 20 MG TAB PO SCH ×2 (10:49→22:17)
[2020-08-29] MEDS: Furosemide 20 MG TAB PO SCH (10:49)
[2020-08-29] MEDS: metFORMIN 500 MG TAB PO SCH ×2 (10:49→17:46)
[2020-08-29] MEDS: Apixaban 5 MG TAB PO SCH (10:49)
[2020-08-29] MEDS: Cyanocobalamin (Vitamin B-12) 1,000 MCG TAB PO SCH (10:49)
[2020-08-29] MEDS ORDERED: Furosemide 40 MG/4 ML VIAL SLOW IVP SCH (16:15)
--- NOTE | 2020-08-29 16:43 | PRG ---
DATE OF SERVICE: 08/29/2020 SUBJECTIVE: Mr. Collado feels very short of breath with any type of exertion. He has been walking in the room a little bit. It makes him extremely winded. No chest pain. OBJECTIVE: VITAL SIGNS: Blood pressure 140/70, pulse 90 and it is regular. LUNGS: Not done today. CARDIAC: Not done today. The patient does have a positive COVID test. I am trying to minimize direct contact. LABORATORY DATA: The BNP was 1351. ASSESSMENT: Congestive heart failure, systolic and diastolic mixed. He appears to be still in heart failure. PLAN: 1. Give him additional diuretic. 2. We will go ahead and reduce the amiodarone back to 200 mg once a day. 3. Continue aspirin and apixaban. At some point, we may have to take him off the amiodarone due to the thyroid abnormalities. Consideration for Multaq if it is not cost prohibitive. Job ID: [id number]
[2020-08-29 17:05] VITALS: BP 163/91
--- NOTE | 2020-08-29 17:29 | EKG ---
Test Reason : SYNCOPE Blood Pressure : / mmHG Vent. Rate : 115 BPM Atrial Rate : 127 BPM P-R Int : 000 ms QRS Dur : 098 ms QT Int : 398 ms P-R-T Axes : 000 -21 201 degrees QTc Int : 550 ms Atrial fibrillation with rapid ventricular response Incomplete right bundle branch block Inferior infarct , age undetermined Abnormal ECG Confirmed by ALEKSANDAR WILSON M.D. ([id number]), editor index [facility]МИТРИЙ COLE ([id number]) on 08/29/2020 5:29:32 PM Referred By: Confirmed By:ALEKSANDAR WILSON M.D.
[2020-08-29 17:35] LABS: Actual Bicarbonate (HCO3a) 7.3 mEq/L (22-28); Base Excess (BEa) -25.3 mEq/L (-2.0 to +3.0); CO2 Tension 38.1 mmHg (35.0-45.0); Calcium, Ionized (arterial) 1.09 mmol/L (1.12-1.30); Carboxyhemoglobin (COHb) 0.5 gm% (0.0-3.0); Hemoglobin (Hb) 13.9 g/dL (14.0-18.0); O2 Tension (PaO2), arterial 82.6 mmHg (> 60.0); Potassium - ABG Lab 5.58 mmol/L (3.70-5.30)
[2020-08-29] MEDS ORDERED: Norepinephrine 4 MG/4 ML VIAL ONE (17:35)
--- NOTE | 2020-08-29 17:36 | PDOC.HOSPP ---
- Subjective Encounter Date: 08/29/20 Encounter Time: 04:40 Subjective: F/u: COVId pneumonia The patient was doing well this morning per nursing staff. Around 4:20 pm the patient ambulated to the bathroom and on the way back, said he couldn't breathe. He shortly lost his pulse and CPR was started. The patient received 2 cycles of CPR and two rounds of epinephrine. He was intubated and ROSC was achieved. The lowest the patient's heart rate was 56 but heart rate ranges from 60 -100. Consent obtained from and daughter for central line. Family was updated - Objective Vital Signs & Weight: Vital Signs (12 hours) Temp Pulse Resp BP Pulse Ox 08/29/20 17:29 69 08/29/20 15:58 97.7 F 71 36 H 163/91 H 94 L 08/29/20 11:00 97.8 F 90 28 H 140/73 94 L 08/29/20 05:38 93 L Weight Weight 214 lb 3.2 oz I&O: 08/28/20 08/29/20 08/30/20 06:59 06:59 06:59 Intake Total 2270 1400 Output Total 600 350 Balance 1670 1050 Result Diagrams: 08/29/20 05:32 08/28/20 05:07 Additional Labs: Accuchecks 08/29/20 08/29/20 08/28/20 11:31 06:13 20:23 POC Glucose 153 H 157 H 189 H Hospitalist ROS - Review of Systems ROS unobtainable: due to endotracheal tube - Medication Medications: Active Medications Generic Name Dose Route Start Last Admin Trade Name Thai PRN Reason Stop Dose Admin Acetaminophen 650 mg 08/27/20 14:23 08/27/20 20:47 Acetaminophen 325 Mg Tab PO 650 mg Q4H PRN Administration Headache/Fever/Mild Pain (1-3) Amiodarone HCl 200 mg 08/27/20 21:00 08/29/20 10:49 Amiodarone 200 Mg Tab PO 200 mg BID MADALYN Administration Apixaban 5 mg 08/27/20 21:00 08/29/20 10:49 Apixaban 5 Mg Tab PO 5 mg BID MADALYN Administration Aspirin 81 mg 08/28/20 09:00 08/29/20 10:48 Aspirin 81 Mg Enteric Coated Tablet PO 81 mg DAILY MADALYN Administration Atorvastatin Calcium 20 mg 08/27/20:00 08/28/20 21:39 Atorvastatin Calcium 20 Mg Tab PO 20 mg HS MADALYN Administration Cyanocobalamin 1,000 mcg 08/28/20 09:00 08/29/20 10:49 Cyanocobalamin (Vitamin B-12) 1,000 Mcg Tab PO 1,000 mcg DAILY MADALYN Administration Famotidine 20 mg 08/27/20 21:00 08/29/20 10:49 Famotidine 20 Mg Tab PO 20 mg BID MADALYN Administration Furosemide 20 mg 08/28/20 09:00 08/29/20 10:49 Furosemide 20 Mg Tab PO 20 mg DAILY MADALYN Administration Gabapentin 600 mg 08/27/20 21:00 08/28/20 21:37 Gabapentin 300 Mg Cap PO 600 mg HS MADALYN Administration Hydralazine HCl 10 mg 08/28/20 12:33 08/28/20 14:29 Hydralazine 20 Mg/Ml Vial SLOW IVP 10 mg Q4H PRN Administration SBP>150 Insulin Glargine 30 units/ 0.3 mls @ 0 mls/hr 08/28/20 09:00 08/29/20 10:48 Miscellaneous Medication SC 0.3 mls QAM MADALYN Administration Insulin Glargine 8 units/ 0.08 mls @ 0 mls/hr 08/27/20 21:00 08/28/20 21:43 Miscellaneous Medication SC 0.08 mls HS MADALYN Administration Lisinopril 20 mg 08/28/20 21:00 08/28/20 21:37 Lisinopril 20 Mg Tab PO 20 mg HS MADALYN Administration Metformin HCl 1,000 mg 08/27/20 17:00 08/29/20 10:49 Metformin 500 Mg Tab PO 1,000 mg BID-WM MADALYN Administration Metoprolol Tartrate 5 mg 08/28/20 12:33 08/29/20 00:15 Metoprolol Tartrate 5 Mg/5 Ml Vial IVP 08/31/20 12:34 5 mg Q4H PRN Administration SBP>150 or HR>90 Pantoprazole Sodium 40 mg 08/28/20 09:00 08/29/20 10:50 Pantoprazole 40 Mg Tab PO 40 mg DAILY MADALYN Administration Polysaccharide Iron Complex 150 mg 08/28/20 08:00 08/29/20 10:48 Iron Polysaccharides Complex 150 Mg Cap PO 150 mg QAM-WM MADALYN Administration Sertraline HCl 50 mg 08/28/20 09:00 08/29/20 10:50 Sertraline Hcl 100 Mg Tab PO 50 mg DAILY MADALYN Administration - Exam General - other findings: intubated Eye: PERRL, anicteric sclera ENT: normocephalic atraumatic Neck: supple, symmetric, no JVD Heart: RRR, no murmur, no gallops, no rubs, normal peripheral pulses Respiratory: no wheezes, no rales Respiratory - other findings: rhonchorous breath sounds Gastrointestinal: soft, non-tender, non-distended, normal bowel sounds Extremities: no cyanosis, no clubbing, no edema Skin: normal turgor, no lesions, no rashes Neurological: cranial nerve grossly intact, normal sensation to touch, no weakness Musculoskeletal: normal tone, normal strength, no muscle wasting Psychiatric: normal affect, normal behavior Hosp A/P - Plan Chest xray: mild pleural effusions bilaterally THis is an 80 year old male who presented with dizziness. He was found to be stuart fib with heart rate of 110. He also had COVID. This afternoon, he lost his pulse and required CPR #Cardiac arrest secondary to PEA #Atrial fibrillation #Possible tachybrady syndrome - patient required two rounds of CPR and two cycles of epinephrine. Was bradycardic originally - patient is on amiodarone. Cardiology is following. No pacemaker for now per Dr. Cano Acute hypoxic respiratory failure possibly from COVID vs pulmonary edema - last chest X ray showed pleural effusions. He was COVID + but asymptomatic. He was intubated with pH 6.8 - patient is already on eliquis. Will hold lasix for now. Start on levofed due to hypotension - will order dexamethasone, IV zosyn, convalescent plasma. Pulmonary has been consulted Acute metabolic acidosis - pH 6.8, with bicarb of 7.3 - will start normal saline with sodium bicarb - ordered two amps of bicarbonate - recheck CMP Hypokalemia - potassium 3.2, replacement ordered Type II diabetes - check fingersticks q6 hours Family has been updated. Poor prognosis
[2020-08-29] MEDS ORDERED: Sodium Bicarb 50 MEQ/50 ML Abboject 8.4% SYRINGE ONE ×2 (17:39)
[2020-08-29 17:40] LABS: Puncture Site RRA
[2020-08-29 17:41] LABS: ALV-art Gradient 577.775 mmHg (0-20)
[2020-08-29] MEDS: Norepinephrine 8 MG in Dextrose 5% in Water 242 ML IVPB PRN ×2 (17:43→21:07)
[2020-08-29] MEDS ORDERED: Norepinephrine 8 MG/0.9% NS 250 ML IVPB SCH (17:45)
[2020-08-29] MEDS ORDERED: Sodium Bicarb 50 MEQ/50 ML Abboject 8.4% SYRINGE IVP SCH (17:45)
[2020-08-29 17:53] LABS: Hemoglobin 13.3 g/dL (14.0-18.0); Mean Corpuscular HGB CONC 30.9 g/dL (32.0-36.0); Mean Corpuscular Volume 93.9 fL (78.0-98.0); Mean Platelet Volume 10.8 fL (7.4-10.4); Platelet Count 172 thou/uL (130-400); RBC Distribution Width 14.3 % (11.5-14.5); Red Blood Cell (RBC) Count 4.59 mill/uL (4.70-6.10); White Blood Cell (WBC) Count 16.3 thou/uL (4.8-10.8)
[2020-08-29] MEDS ORDERED: Potassium Chloride 20 MEQ TAB PO SCH (18:00)
--- NOTE | 2020-08-29 18:17 | RAD ---
Frontal radiograph chest: 08/29/2020 COMPARISON: 08/27/2020 HISTORY: CODE BLUE FINDINGS: There is an endotracheal tube projecting over the tracheal air column approximately 3-4 cm above the level clavicular heads. Supine imaging is provided, limiting assessment for pneumothorax and pleural fluid. Midline sternotomy wires are present. There is dense interstitial and alveolar opacity in the perihilar regions and both upper lobes, right greater than left, as well as in the bilateral lung bases, significantly worsened since the prior exam. IMPRESSION: Interval worsening of diffuse interstitial and alveolar opacity. This could be on the bas is of worsening edema, aspiration, and/or infectious pneumonitis, including Covid 19. Recommend advancing the endotracheal tube and repeat imaging. Results were discussed with Dr. Pinedo at 6:15 PM 08/29/2020
[2020-08-29] MEDS: Vasopressin 20 UNIT, Admixture Fee 1 EACH in Sodium Chloride 0.9% 50 ML IV SCH (18:20)
--- NOTE | 2020-08-29 18:21 | RAD ---
Portable frontal chest radiograph: 08/29/2020 COMPARISON: 08/29/2020 HISTORY: CODE BLUE FINDINGS: The endotracheal tube has been advanced since the prior examination, now in a good location overlying the region of the clavicular heads. There is a left subclavian vascular catheter, distal tip overlying the region of the cavoatrial junction. There is diffuse perihilar interstitial and alveolar opacity extending into the upper lobes, right gr eater than left, as well as within both lung bases. Midline sternotomy wires are present. IMPRESSION: Extensive interstitial and alveolar opacity. Lines and tubes as detailed above. Dr. Pinedo made aware at 6:20 PM 08/29/2020
[2020-08-29 18:23] LABS: ALT (SGPT) 306 U/L (8-55); AST (SGOT) 1283 U/L (5-34); Albumin 3.1 g/dL (3.4-4.8); Alkaline Phosphatase 117 U/L (40-110); BUN (Urea Nitrogen) 27 mg/dL (8.4-25.7); Bilirubin, Total 1.3 mg/dL (0.2-1.2); Calc. Creatinine Clearance 38 mL/min (70-130); Calcium 8.1 mg/dL (7.8-10.44); Carbon Dioxide Less than 8 mmol/L (23-31); Chloride 104 mmol/L (98-107); Estimated GFR-MDRD 30; Globulin 2.9 g/dL (2.4-3.5); Glucose 158 mg/dL (83-110); Potassium 5.9 mmol/L (3.5-5.1); Sodium 140 mmol/L (136-145)
[2020-08-29] MEDS ORDERED: Sodium Bicarbonate 50 MEQ in Sodium Chloride 0.45% 1,000 ML IV SCH (18:30)
[2020-08-29] MEDS ORDERED: Dexamethasone 6 MG in Sodium Chloride 0.9% 50 ML IVPB SCH (18:30)
[2020-08-29 18:31] LABS: Lactic Acid 17.2 mmol/L (0.5-2.2)
[2020-08-29] MEDS ORDERED: Calcium Gluconate 4.6 MEQ in Sodium Chloride 0.9% 100 ML IVPB SCH (18:31)
[2020-08-29] MEDS: Sodium Bicarb 50 MEQ/50 ML Abboject 8.4% SYRINGE ONE ×3 (18:37→19:07)
[2020-08-29] MEDS ORDERED: Sodium Chloride 0.9% 500 ML IV SCH (18:45)
[2020-08-29] MEDS ORDERED: DOPamine 400 MG/D5W 250 ML 250 ML ONE (18:58)
[2020-08-29] MEDS ORDERED: EPINEPHrine 1 MG/10 ML Abboject SYRINGE ONE (19:01)
[2020-08-29] MEDS: DOPamine 400 MG/D5W 250 ML 250 ML IVPB SCH (19:04)
[2020-08-29] MEDS ORDERED: DOPamine 400 MG/D5W 250 ML 250 ML IVPB SCH (19:15)
[2020-08-29] MEDS ORDERED: Sodium Bicarbonate 150 MEQ in Dextrose 5% in Water 1,000 ML IV SCH (20:00)
[2020-08-29] MEDS ORDERED: Hydrocortisone Sod Succ/PF 100 mg/2 ml Vial IVP SCH (20:00)
--- NOTE | 2020-08-29 20:06 | CON ---
DATE OF CONSULTATION: 08/29/2020 SERVICE: Nephrology. REASON FOR CONSULTATION: Acute renal failure and hyperkalemia. REQUESTING PHYSICIAN: Dr. Emily Pinedo. HISTORY OF PRESENT ILLNESS: The above history was obtained from review of medical record as patient is currently intubated and mechanically ventilated. The patient is an 80-year-old male with known history of paroxysmal atrial fibrillation, chronic congestive heart failure with recent EF of 40%, coronary artery disease amongst others, who was admitted due to intermittent dizziness associated with generalized weakness and recurrent falls. The patient on presentation to the ER was found to have atrial fibrillation with rapid ventricular response. Of note, the patient was diagnosed with coronavirus infection about 11 days prior to presentation, but has been less largely asymptomatic up until presentation. The patient since admission has been having worsening shortness of breath especially with exertion and reportedly developed respiratory distress after going to the restroom and soon lost his pulse and was subsequently started on CPR with return of spontaneous circulation. He was subsequently intubated and admitted to the ICU. Repeat labs obtained showed potassium of 5.9 and creatinine of 2.2. Of note, the patient was hypokalemic yesterday with potassium of 3.2 and creatinine of 0.8. He also was found to have severe metabolic acidosis with pH of 6.9, hence received several boluses of bicarbonate. PAST MEDICAL HISTORY: 1. Diabetes mellitus. 2. Combined systolic and diastolic heart failure. 3. Paroxysmal atrial fibrillation. 4. Coronary artery disease. 5. Colon cancer, status post partial bowel resection and chemotherapy. 6. Diverticulitis. 7. Hyperlipidemia. 8. Hypertension. 9. Gastroesophageal reflux disease. PAST SURGICAL HISTORY: 1. Hemicolectomy. 2. Laparotomy with open debridement of necrotizing fascitis. 3. Right shoulder surgery. 4. Coronary artery bypass graft. 5. Incisional hernia repair. 6. Cholecystectomy. FAMILY HISTORY: Unable to obtain due to patient's condition. SOCIAL HISTORY: The patient is a former smoker, but quit about 18 years ago. Denied alcohol or recreational drug use. ALLERGIES: NO KNOWN DRUG ALLERGIES REPORTED. MEDICATIONS: Prior to hospital, medications are as follows; 1. Amiodarone 100 mg p.o. daily at bedtime. 2. Vitamin B12 at 1000 mg p.o. daily. 3. Furosemide 20 mg p.o. daily. 4. Ferrous sulfate 65 mg p.o. b.i.d. 5. Lantus 8 units subcutaneously at bedtime. 6. Lantus 30 units daily in the morning. 7. Lipitor 20 mg p.o. daily at bedtime. 8. Lisinopril 10 mg p.o. daily at bedtime. 9. Metformin 1000 mg p.o. b.i.d. 10. Gabapentin 650 mg p.o. daily at bedtime. 11. Omeprazole 20 mg p.o. daily at bedtime. 12. Sertraline 50 mg p.o. daily in the morning. 13. Aspirin 81 mg p.o. daily. 14. Eliquis 5 mg p.o. b.i.d. Current hospital medications are as follows; 1. Cefepime 1 g q.12 hours. 2. Decadron 6 mg IV daily. 3. Dopamine infusion. 4. Epinephrine infusion. 5. Lantus subcutaneously in the morning and evening. 6. Zosyn 3.75 q.6 hours p.r.n. 7. Vasopressin infusion. 8. Amiodarone 200 mg p.o. b.i.d. 9. Protonix 40 mg daily. 10. Metformin 1000 mg p.o. b.i.d. 11. Lisinopril 20 mg daily at bedtime. 12. Gabapentin 600 mg daily at bedtime. 13. Sertraline 50 mg p.o. daily in the morning. REVIEW OF SYSTEMS: Could not be performed. PHYSICAL EXAMINATION: VITALS: Temperature 97.7. GENERAL: Elderly male, mechanically ventilated. HEENT: Normocephalic, atraumatic. CARDIAC: Normal heart sounds 1 and 2. Irregular rhythm. RESPIRATORY: Ventilator transmitted breath sounds noted. GASTROINTESTINAL: Abdomen is full, soft. The patient is obese. EXTREMITIES: Mild bilateral leg edema noted. CUT FILER: Unresponsive. DIAGNOSTIC DATA: CBC this evening showed WBC count of 16.3, hemoglobin of 13.3, platelets of 172. Chemistry this evening after the code showed sodium 140, potassium 5.9, chloride 104, CO2 less than 8, BUN 27, creatinine 2.12, glucose 158, total bilirubin 1.3, AST 1283, ALT 306, alkaline phosphatase 117, total protein 6.0, albumin 3.1. Calcium is 8.1. Lactic acid is 17.2. Arterial blood gas obtained during the code post intubation showed pH of 6.9, pCO2 of 38.1, pO2 of 82.6. On August 28, the patient had sodium of 120, potassium of 3.2, chloride of 109, CO2 of 20, BUN of 39, creatinine of 0.82. Chest x-ray obtained during code blue showed interval worsening of diffuse interstitial and alveolar opacities, which could be due to worsening edema, aspiration, or infectious pneumonitis. ASSESSMENT: 1. Acute renal failure: Due to cardiopulmonary arrest and poor perfusion, acute tubular necrosis is a concern. 2. Hyperkalemia most likely due to fluid shift related to severe metabolic acidosis. Of note, the patient had hypokalemia yesterday. 3. Cardiac arrest. 4. Known history of acute on chronic combined systolic and diastolic heart failure. 5. Recent COVID infection with possible pneumonitis. 6. Paroxysmal atrial fibrillation. 7. Severe metabolic acidosis. PLAN: 1. We will start the patient on bicarb infusion in view of severe metabolic acidosis. 2. Agree with pressure support to improve hemodynamics. 3. We will monitor intake and output closely. 4. We will recheck BNP in 4 to 6 hours to assess improvement. It is anticipated that with improvement of hemodynamics and with bicarb infusion, hyperkalemia will improve. Further treatment to follow depending on hospital course. 5. Patient remained critically ill with guarded prognosis. Job ID: [id number]
[2020-08-29] MEDS: Atorvastatin Calcium 20 MG TAB PO SCH (21:53)
[2020-08-29] MEDS: Piperacillin/Tazobactam 3.375 GM in Sodium Chloride 0.9% 100 ML IVPB SCH ×2 (21:56→22:15)
[2020-08-29] MEDS: Cefepime 1 GM in Sodium Chloride 0.9% 100 ML IVPB SCH (22:14)
[2020-08-29] MEDS: Hydrocortisone Sod Succ/PF 100 mg/2 ml Vial IVP SCH (22:15)
[2020-08-29] MEDS: Enoxaparin Sodium 100 MG/ML SYRINGE SC SCH (22:17)
[2020-08-29] MEDS: Insulin Glargine 8 UNITS in Pre-Filled Syringe SC SCH (22:18)
[2020-08-29 23:55] LABS: SARS-CoV-2 NAA Rapid Test DETECTED (NotDetected)
[2020-08-30] MEDS: Vasopressin 20 UNIT, Admixture Fee 1 EACH in Sodium Chloride 0.9% 50 ML IV SCH (00:10)
[2020-08-30] MEDS: Norepinephrine 8 MG in Dextrose 5% in Water 242 ML IVPB PRN ×3 (00:11→06:45)
[2020-08-30] MEDS: DOPamine 400 MG/D5W 250 ML 250 ML IVPB SCH ×3 (01:36→10:44)
[2020-08-30 04:30] LABS: Anion Gap 40 mmol/L (10-20); BUN (Urea Nitrogen) 30 mg/dL (8.4-25.7); Calc. Creatinine Clearance 26 mL/min (70-130); Calcium 7.3 mg/dL (7.8-10.44); Chloride 99 mmol/L (98-107); Estimated GFR-MDRD 20; Glucose 119 mg/dL (83-110); Potassium 5.2 mmol/L (3.5-5.1); Sodium 143 mmol/L (136-145)
[2020-08-30 04:35] LABS: Carbon Dioxide 9 mmol/L (23-31)
[2020-08-30 05:25] LABS: Band 32 % (5-11); Hemoglobin 12.4 g/dL (14.0-18.0); Lymphocytes 7 % (21-51); MDiff Complete? YES; Mean Corpuscular HGB CONC 30.7 g/dL (32.0-36.0); Mean Corpuscular Hemoglobin 29.3 pg (27.0-31.0); Mean Corpuscular Volume 95.6 fL (78.0-98.0); Mean Platelet Volume 10.6 fL (7.4-10.4); Monocytes 2 % (0-10); Neutrophil 59 % (42-75); Platelet Count 189 thou/uL (130-400); RBC Distribution Width 14.3 % (11.5-14.5); Red Blood Cell (RBC) Count 4.23 mill/uL (4.70-6.10)
[2020-08-30] MEDS: Hydrocortisone Sod Succ/PF 100 mg/2 ml Vial IVP SCH (05:30)
[2020-08-30] MEDS: Piperacillin/Tazobactam 3.375 GM in Sodium Chloride 0.9% 100 ML IVPB SCH (05:30)
[2020-08-30] MEDS ORDERED: Vancomycin 1 GM in Premix Bag 1 BAG IVPB SCH (07:18)
[2020-08-30 07:35] LABS: Actual Bicarbonate (HCO3a) 8.5 mEq/L (22-28); Base Excess (BEa) -23.3 mEq/L (-2.0 to +3.0); CO2 Tension 40.9 mmHg (35.0-45.0); Calcium, Ionized (arterial) 0.91 mmol/L (1.12-1.30); Carboxyhemoglobin (COHb) 0.7 gm% (0.0-3.0); Hemoglobin (Hb) 13.6 g/dL (14.0-18.0)
[2020-08-30] MEDS ORDERED: Vancomycin 1.5 GRAM/300 ML BAG 1.5 GM in Premix Bag 1 BAG IVPB SCH (08:00)
[2020-08-30 08:04] LABS: O2 Tension (PaO2), arterial 58.5 mmHg (> 60.0); pH, Arterial 6.94 (7.35-7.45)
[2020-08-30 08:05] LABS: ALV-art Gradient 603.375 mmHg (0-20); Puncture Site RRA
[2020-08-30] MEDS: Cefepime 1 GM in Sodium Chloride 0.9% 100 ML IVPB SCH (08:22)
[2020-08-30] MEDS: Enoxaparin Sodium 100 MG/ML SYRINGE SC SCH (08:22)
[2020-08-30] MEDS: Famotidine 20 MG TAB PO SCH (08:22)
[2020-08-30] MEDS: Cyanocobalamin (Vitamin B-12) 1,000 MCG TAB PO SCH (08:22)
[2020-08-30] MEDS: Furosemide 20 MG TAB PO SCH (08:22)
[2020-08-30] MEDS: Aspirin 81 mg Enteric Coated Tablet PO SCH (08:22)
[2020-08-30] MEDS ORDERED: Sodium Bicarbonate 150 MEQ in Dextrose 5% in Water 1,000 ML IV SCH (08:30)
[2020-08-30] MEDS ORDERED: Dexamethasone 6 MG in Sodium Chloride 0.9% 50 ML IVPB SCH (09:00)
--- NOTE | 2020-08-30 09:01 | RAD ---
Chest one view HISTORY: Pneumonia. Follow-up. COMPARISON: 08/29/2020. FINDINGS: Cardiac silhouette remains magnified by projection and partially obscured by dense patchy i nfiltrates throughout each lung. Infiltrates at the right lower lobe and left upper lobe have progressed slightly. Mediastinum is midline. Endotracheal catheter and right subclavian central venous catheter unchanged in position. A new nasogastric tube descends to the abdomen. IMPRESSION : Interval radiographic worsening of patchy bilateral infiltrates. Interval placement of nasogastric tube.
--- NOTE | 2020-08-30 09:12 | PRG ---
DATE OF SERVICE: SUBJECTIVE: An 80-year-old gentleman, remains in the ICU. He is a DNR, temperature 97, was intubated yesterday. OBJECTIVE: VITAL SIGNS: Respirations 30, pulse 81, 100% FiO2 sats are in the mid 70s. Blood pressure 100/62. CHEST: Rhonchi, crackles. CARDIAC: Sinus tach. ABDOMEN: Soft. IMAGING: X-ray shows bilateral infiltrates. LABORATORY DATA: PO2 is 58, pCO2 40, pH 6.9. White count 29696. Creatinine 3, BUN 30, bicarb is 19, severe metabolic acidosis, chronic positive pneumonia, congestive heart failure, long-term anticoagulation. PROGNOSIS: Grave. Family is aware the long-term prognosis is grave. Comfort care. Job ID: [id number]
[2020-08-30] MEDS ORDERED: Morphine 10 MG/ML VIAL SLOW IVP PRN (09:53)
[2020-08-30] MEDS: Insulin Glargine 30 UNITS in Pre-Filled Syringe SC SCH (10:37)
[2020-08-30] MEDS: Iron Polysaccharides Complex 150 MG CAP PO SCH (10:37)
--- NOTE | 2020-08-30 10:47 | OP ---
DATE OF PROCEDURE: 08/29/2020 PREOPERATIVE DIAGNOSIS: Acute septic shock. POSTOPERATIVE DIAGNOSIS: Acute septic shock. PROCEDURE PERFORMED: Placement of left subclavian triple-lumen central venous catheter. INDICATIONS FOR PROCEDURE: An 80-year-old man admitted in Intensive Care Unit with suspicious for septic shock. I was asked to place a central venous catheter for hemodynamic monitoring and for intravenous therapeutic intervention. DESCRIPTION OF PROCEDURE: Informed consent was obtained from the patient's power of insurance attorney. The patient was placed in supine position. Left chest wall was sterilely prepped and draped in usual fashion. The skin below the left clavicle was anesthetized with 1% lidocaine. Left subclavian vein was cannulated with an 18-gauge introducer needle returning dark venous blood. Guidewire was passed through the needle and advanced into the left subclavian vein without resistance. Needle was withdrawn over the guidewire. A stab incision was made adjacent to the guidewire using a using 11 scalpel. Dilator was passed over the guidewire dilating subcutaneous tissues. Dilator was removed and a triple-lumen central venous catheter was advanced over the guidewire and placed in the left subclavian vein without resistance, stopping at the 18 cm joseph. Guidewire was removed. Dark venous blood aspirated from all three ports, which were individually flushed with saline. The catheter was secured to anterior chest wall using 3-0 silk suture at two points. Sterile dressings were applied. The patient tolerated the procedure without any apparent complication and remains hemodynamically stable following completion of procedure. Job ID: [id number]
--- NOTE | 2020-08-30 10:51 | CON ---
DATE OF CONSULTATION: HISTORY OF PRESENT ILLNESS: The patient is an 80-year-old gentleman with a 3-week history of wren positive bronchopneumonia, who presented to the hospital on the . His x-ray shows nonspecific bilateral infiltrates. There was concern he may have had congestive heart failure. Cardiology was consulted. This evening at about 4:30 he was going to the bathroom when he collapsed and CPR was initiated, pulseless rhythm. He was transferred to the ICU where he was intubated by the ER physician. Additionally, a central line was placed. He remains hypotensive, on Levophed. His blood gases show severe metabolic acidosis. Obviously, there is not much additional information available at this time except by reviewing the medical records, but appears his saturations were 93% on room air today and his blood pressure was elevated. Unclear why he had a sudden demise in his blood pressure. Additional history as noted. Admission was prompted by marked weakness. PAST MEDICAL HISTORY: Cardiac disease, myocardial infarction, diabetes, hypertension, history of previous colon cancer. PREVIOUS SURGERIES: Bowel surgery in 2005, bypass, multiple stents in 1999. SOCIAL HISTORY: No alcohol. No smoking history. HOME MEDICINES: Included 1. Insulin 8 units. 2. Zoloft. 3. Prilosec. 4. Lisinopril. 5. Gabapentin. 6. Lasix. 7. Eliquis 5 twice a day. 8. Amiodarone 100. REVIEW OF SYSTEMS: Otherwise, unobtainable. PHYSICAL EXAMINATION: VITAL SIGNS: His blood pressure is 70/60, saturations are 98%, temperature 97. CHEST: Rhonchi, crackles. CARDIAC: Normal S1, S2. No gallops. LABORATORY STUDIES: White count 69987, H and H are 13 and 43, platelet count is normal. PO2 is 82, pCO2 is 38, pH of 6.9 on 100%, PEEP of 5, pressure support of 10, rate 24. Bicarb is 8, creatinine 2, BUN 27. AST is 1283, markedly elevated, ALT 306. IMPRESSION: 1. Multiorgan failure, hypotension, appears to be cardiac in origin. 2. Rule out pulmonary emboli. 3. Diffuse pulmonary infiltrates. Three weeks wren positive pneumonia. 4. Renal failure. 5. Electrolyte imbalance, diabetes. PLAN: Stress dose of steroids initiated. Continue Decadron. Hold amiodarone. Levophed, vasopressin, dopamine initiated. Full-dose Lovenox was initiated. Continue bicarb, 4 amps is given. Repeat bicarb at some other time once he has repeat blood gases. His overall prognosis is grave. This is a 45-minute critical care time. Job ID: [id number]
--- NOTE | 2020-08-30 11:07 | PRG ---
DATE OF SERVICE: 08/30/2020 SUBJECTIVE: Mr. Collado is intubated, on the ventilator. OBJECTIVE: VITAL SIGNS: His blood pressure is 117/48, pulse 68. Physical exam not done in this patient with COVID pneumonia. His lungs show diffuse interstitial infiltrates on the chest x-ray. The laboratory reveals a pH of 6.90 yesterday, pCO2 of 38, pH 6.94, pCO2 of 40.9 today, 100% oxygen, his PO2 is only 58. EKG, right bundle-branch block. Creatinine is 3.08. ASSESSMENT AND PLAN: 1. Respiratory failure. 2. Severe metabolic acidosis. 3. COVID pneumonia. The patient appears to be end stage. He is currently do not resuscitate, comfort care only. Job ID: [id number]
--- NOTE | 2020-08-30 12:34 | PDOC.NEPPN ---
- Subjective Encounter Date: 08/30/20 Subjective: Seen in follow up for ARF and metabolic acidosis after in hospital cardiac arrest. Still intubated and mechanically ventillated. - Objective Vital Signs & Weight: Vital Signs (12 hours) Temp Pulse Resp Pulse Ox 08/30/20 10:25 68 08/30/20 10:00 30 H 08/30/20 09:00 97.6 F 08/30/20 08:03 81 08/30/20 08:00 30 H 70 L 08/30/20 06:00 97.2 F L 30 H 08/30/20 04:00 30 H 08/30/20 02:00 30 H 08/30/20 01:00 97.8 F Weight Weight 214 lb 3.2 oz Most Recent Monitor Data Heart Rate from ECG 67 NIBP 118/52 NIBP BP-Mean 74 Respiration from ECG 30 SpO2 44 I&O: 08/29/20 08/30/20 08/31/20 06:59 06:59 06:59 Intake Total 1400 3198.3 Output Total 350 0 0 Balance 1050 3198.3 0 Result Diagrams: 08/30/20 04:00 08/30/20 03:30 Nephrology ROS - Medication Medications: Active Medications Generic Name Dose Route Start Last Admin Trade Name Freq PRN Reason Stop Dose Admin Acetaminophen 650 mg 08/27/20 14:23 08/27/20 20:47 Acetaminophen 325 Mg Tab PO 650 mg Q4H PRN Administration Headache/Fever/Mild Pain (1-3) Aspirin 81 mg 08/28/20 09:00 08/30/20 08:22 Aspirin 81 Mg Enteric Coated Tablet PO 81 mg DAILY MADALYN Administration Atorvastatin Calcium 20 mg 08/27/20 21:00 08/29/20 21:53 Atorvastatin Calcium 20 Mg Tab PO Not Given HS MADALYN Cyanocobalamin 1,000 mcg 08/28/20 09:00 08/30/20 08:22 Cyanocobalamin (Vitamin B-12) 1,000 Mcg Tab PO 1,000 mcg DAILY MADALYN Administration Enoxaparin Sodium 100 mg 08/29/20 21:00 08/30/20 08:22 Enoxaparin Sodium 100 Mg/Ml Syringe SC 100 mg 0900,2100 MADALYN Administration Famotidine 20 mg 08/27/20 21:00 08/30/20 08:22 Famotidine 20 Mg Tab PO 20 mg BID MADALYN Administration Furosemide 20 mg 08/28/20 09:00 08/30/20 08:22 Furosemide 20 Mg Tab PO 20 mg DAILY MADALYN Administration Hydralazine HCl 10 mg 08/28/20 12:33 08/28/20 14:29 Hydralazine 20 Mg/Ml Vial SLOW IVP 10 mg Q4H PRN Administration SBP>150 Hydrocortisone Sodium Succinate 50 mg 08/29/20 23:59 08/30/20 05:30 Hydrocortisone Sod Succ/Pf 100 Mg/2 Ml Vial IVP 09/05/20 18:01 50 mg Q6HR MADALYN Administration Insulin Glargine 30 units/ 0.3 mls @ 0 mls/hr 08/28/20 09:00 08/30/20 10:37 Miscellaneous Medication SC Not Given QAM MADALYN Insulin Glargine 8 units/ 0.08 mls @ 0 mls/hr 08/27/20 21:00 08/29/20 22:18 Miscellaneous Medication SC Not Given HS MADALYN Norepinephrine Bitartrate 8 mg 250 mls @ 0 mls/hr 08/29/20 17:45 08/30/20 06:45 / Dextrose/Water IVPB 250 mls INF PRN Administration TO MAINTAIN MAP > 65 Protocol As Directed Piperacillin Sod/Tazobactam 100 mls @ 200 mls/hr 08/29/20 18:00 08/30/20 05:30 Sod 3.375 gm/ Sodium Chloride IVPB 100 mls Q6HR MADALYN Administration Vasopressin 20 unit/ 51 mls @ 0 mls/hr 08/29/20 18:15 08/30/20 00:10 Miscellaneous Medication 1 IV 51 mls each/ Sodium Chloride INF MADALYN Administration Protocol As Directed Cefepime HCl 1 gm/ Sodium 100 mls @ 200 mls/hr 08/29/20 21:00 08/30/20 08:22 Chloride IVPB 100 mls Q12HR MADALYN Administration Dopamine HCl/Dextrose 250 mls @ 0 mls/hr 08/29/20 18:45 08/30/20 10:44 Dopamine 400 Mg/D5w 250 Ml IVPB 250 mls INF MADALYN Administration Protocol Titrate Epinephrine 1 mg/ Dextrose/ 251 mls @ 0 mls/hr 08/29/20 19:15 08/30/20 10:05 Water IVPB 251 mls INF MADALYN Administration Protocol Titrate Sodium Bicarbonate 150 meq/ 1,150 mls @ 100 mls/hr 08/30/20 08:30 08/30/20 10:08 Dextrose/Water IV 1,150 mls INF MADALYN Administration Metoprolol Tartrate 5 mg 08/28/20 12:33 08/29/20 00:15 Metoprolol Tartrate 5 Mg/5 Ml Vial IVP 08/31/20 12:34 5 mg Q4H PRN Administration SBP>150 or HR>90 Morphine Sulfate 10 mg 08/30/20 09:53 08/30/20 12:13 Morphine 10 Mg/Ml Vial SLOW IVP 10 mg Q1HR PRN Administration Congestion Pantoprazole Sodium 40 mg 08/28/20 09:00 08/30/20 08:22 Pantoprazole 40 Mg Tab PO 40 mg DAILY MADALYN Administration Polysaccharide Iron Complex 150 mg 08/28/20 08:00 08/30/20 10:37 Iron Polysaccharides Complex 150 Mg Cap PO Not Given QA- MADALYN Sertraline HCl 50 mg 08/28/20 09:00 08/30/20 08:23 Sertraline Hcl 100 Mg Tab PO 50 mg DAILY MADALYN Administration Sodium Bicarbonate 50 meq 08/29/20 17:45 08/29/20 17:45 Sodium Bicarb 50 Meq/50 Ml Abboject 8.4% Syringe IVP 08/30/20 17:46 Not Given NOW MADALYN - Exam General - other findings: unresponsive ENT: normocephalic atraumatic ENT - other findings: ET tube in place Respiratory - other findings: Ventilator transmitted sound noted Cardiovascular: irregular Extremities: no edema Neurological - other findings: unresponsive Nephrology Results - Labs Result Diagrams: 08/30/20 04:00 08/30/20 03:30 Lab results: WBC 26.0 thou/uL (4.8-10.8) H 08/30/20 04:00 Hgb 12.4 g/dL (14.0-18.0) L 08/30/20 04:00 Hct 40.4 % (42.0-52.0) L 08/30/20 04:00 MCV 95.6 fL (78.0-98.0) 08/30/20 04:00 Plt Count 189 thou/uL (130-400) 08/30/20 04:00 Neutrophils % 89.9 % (42.0-75.0) H 08/29/20 05:32 Band Neuts % (Manual) 32 % (5-11) H 08/30/20 04:00 ABG pH 6.94 (7.35-7.45) L* 08/30/20 07:26 ABG pCO2 40.9 mmHg (35.0-45.0) 08/30/20 07:26 ABG pO2 58.5 mmHg (> 60.0) L* 08/30/20 07:26 Sodium 143 mmol/L (136-145) 08/30/20 03:30 Potassium 5.2 mmol/L (3.5-5.1) H 08/30/20 03:30 Chloride 99 mmol/L (98-107) 08/30/20 03:30 Carbon Dioxide 9 mmol/L (23-31) L* 08/30/20 03:30 BUN 30 mg/dL (8.4-25.7) H 08/30/20 03:30 Creatinine 3.05 mg/dL (0.7-1.3) H 08/30/20 03:30 Glucose 119 mg/dL (83-110) H 08/30/20 03:30 Lactic Acid 17.2 mmol/L (0.5-2.2) H* 08/29/20 17:38 Calcium 7.3 mg/dL (7.8-10.44) L 08/30/20 03:30 Total Bilirubin 1.3 mg/dL (0.2-1.2) H 08/29/20 17:38 AST 1283 U/L (5-34) H 08/29/20 17:38 ALT 306 U/L (8-55) H 08/29/20 17:38 Alkaline Phosphatase 117 U/L (40-110) H 08/29/20 17:38 Creatine Kinase 41 U/L (30-200) 08/27/20 11:06 CK-MB (CK-2) 2.2 ng/mL (0-6.6) 08/27/20 11:06 Troponin I 0.044 ng/mL (< 0.028) H 08/27/20 18:28 B-Natriuretic Peptide 1351.6 pg/mL (0-100) H 08/29/20 05:32 Serum Total Protein 6.0 g/dL (5.8-8.1) 08/29/20 17:38 Albumin 3.1 g/dL (3.4-4.8) L 08/29/20 17:38 Urine Ketones Negative mg/dL (Negative) 08/27/20 13:15 Urine Blood Negative (Negative) 08/27/20 13:15 Urine Nitrite Negative (Negative) 08/27/20 13:15 Ur Leukocyte Esterase Negative Jas/uL (Negative) 08/27/20 13:15 Sodium 143 mmol/L (136-145) 08/30/20 03:30 Potassium 5.2 mmol/L (3.5-5.1) H 08/30/20 03:30 Chloride 99 mmol/L (98-107) 08/30/20 03:30 Carbon Dioxide 9 mmol/L (23-31) L* 08/30/20 03:30 Anion Gap 40 mmol/L (10-20) H 08/30/20 03:30 BUN 30 mg/dL (8.4-25.7) H 08/30/20 03:30 Creatinine 3.05 mg/dL (0.7-1.3) H 08/30/20 03:30 Glucose 119 mg/dL (83-110) H 08/30/20 03:30 Calcium 7.3 mg/dL (7.8-10.44) L 08/30/20 03:30 Magnesium 2.0 mg/dL (1.6-2.6) 08/29/20 18:49 Albumin 3.1 g/dL (3.4-4.8) L 08/29/20 17:38 Nephrology AP PN - Plan Acute renal failure. Now anuric. Most likely ATN related to cardiac arrest High anion gap Metabolic acidosis Hyperkalemia Circulatory shock: etiology unclear. cardiogenic vs massive PE vs Covid pneumonia. Acute respiratory failure requiring mevhanical ventilation. Plan Increase sodium bicarbonate infusion to 100 cc/hr. Continue supportive care with mechanical ventilation as well as ionotropic/pressors. in view of worsening renal function and acidosis, Will need renal replacement therapy sooner than later should family elect to proceed with aggressive care. Compassionate extubation and comfort care is considered by relatives. Further treatment to follow depending on hospital course
[2020-08-30 12:46] VITALS: TEMP 97.2
--- NOTE | 2020-08-30 18:55 | PDOC.DS.DS ---
Provider - Provider Date of Admission: 08/27/20 14:55 Date of Discharge: 08/30/20 Admitting Provider: Simon Eduardo MD Primary Care Physician: Ori Lucero PA-C Course - Hospital Course Hospital Course: Discharge Diagnoses: 1. Cardiac arrest secondary to PEA 2. Atrial fibrillation 3. Tachybrady syndrome 4. Acute hypoxic respiratory failure secondary to COVID pneumonia versus pulmonary edema 5. Acute metabolic acidosis 6. Hypokalemia 7. Possible cardiogenic shock versus septic shock Brief HPI: This is an 80-year-old male with a past medical history of diabetes, hypertension who presented to the emergency room with worsening weakness, feeling like he is in a pass out and like his legs were going to collapse. He did not have any cough or shortness of breath. When he presented to the emergency room his heart rate was 114. Chest x-ray showed pulmonary vascular congestion and bilateral pleural effusions. Covid test was positive. Patient was started on vancomycin and ceftriaxone admitted for further work-up. Hospital Course: Patient originally was not started on any antibiotics on admission since he was not requiring any oxygen. He did have some atrial fibrillation and was started on amiodarone at a low dose and he was resumed on his Eliquis. His white blood cell count remained normal. On 08/29 the patient went to the restroom and when he came back he felt like he could not breathe. He became bradycardic and went into asystole. He required 2 cycles of CPR and obtained ROSC after he was intubated. ABG showed a pH of 6.8 and a bicarb of 7. He had multiple amps of bicarb pushed and was started on a sodium bicarbonate drip. He was transferred to the ICU. He subsequently became hypotensive to the 70s. General surgery was consulted and a central line was placed. Chest x-ray showed worsening bilateral pneumonia. He was started on IV vancomycin and cefepime. He was started on Levophed, but due to persistent hypotension he was started on vasopressin, epinephrine, dopamine and hydrocortisone with improvement in his blood pressures to the 140s. However, he still had no urine output and his potassium was 5.9. He was given calcium gluconate. Nephrology was consulted and recommended supportive care. Cardiology evaluated the patient and he was not determined to be a candidate for a pacemaker. His anticoagulation was switched to therapeutic lovenox and eliquis was discontinued. The patient did have difficulty maintaining his saturations on the ventilators. Family meeting was held with his 2 daughters and his who was also in the hospital for Covid. He was monitored overnight with no significant improvement. Family decided to terminally extubate the patient and keep him comfortable. Patient at 12:29 pm. declined an autopsy Pertinent Studies: Chest X ray 08/27: Pulmonary vascular congestion and small bilateral pleural effusions. Airspace opacity at the left midlung, right upper lobe and right lower lobe may reflect airspace edema. Thyroid ultrasound 08/28: Right thyroid lobe nodule 1.0 by point five-point 0.7 hypoechoic nodule. Follow up US in on eyear Chest X ray 08/29: Worsening of diffuse interstitial and alveolar opacity Chest X ray 08/29: Extensive interstitial and alveolar opacity s/p intubation Chest Xray 08/30 : Worsening of patchy bilateral infiltrates Procedures: Intubation 08/29 Left subclavian line placement 08/29 NG tube placement 08/29 Resuscitation Status: 08/30/20 09:52 Resuscitation Status Routine Resuscitation Status: DNAR: NO Resuscitation Discussed with: - Labs Lab Results: 08/30/20 04:00 08/30/20 03:30 Abnormal Lab Results - Last 48 hrs 08/29/20 05:32: B-Natriuretic Peptide 1351.6 H 08/29/20 05:32: WBC 11.0 H, Hgb 13.0 L, MCHC 30.7 L, MPV 10.6 H, Neutrophils % 89.9 H, Lymphocytes % 6.9 L, Neutrophils # 9.9 H, Lymphocytes # 0.8 L 08/29/20 17:32: Bicarbonate Actual 7.3 L, ABG pH 6.90 L*, ABG pO2 82.6 H, ABG O2 Sat (Measured) 85.6 L*, ABG O2 Content 16.7 L, ABG Base Excess -25.3 L, ABG Hematocrit 41.0 L, ABG Hemoglobin 13.9 L, ABG Oxyhemoglobin 85.2 L, ABG Methemoglobin 0.00 L, ABG Deoxyhemoglobin 14.3 H, A-a O2 Gradient 577.775 H, Potassium 5.58 H, Ionized Calcium 1.09 L 08/29/20 17:38: Potassium 5.9 H, Carbon Dioxide Less than 8 L*, BUN 27 H, Creatinine 2.12 H, Total Bilirubin 1.3 H, AST 1283 H, ALT 306 H, Alkaline Phosphatase 117 H, Albumin 3.1 L, Albumin/Globulin Ratio 1.1 L 08/29/20 17:38: WBC 16.3 H, RBC 4.59 L, Hgb 13.3 L, MCHC 30.9 L, MPV 10.8 H 08/29/20 17:38: Lactic Acid 17.2 H* 08/29/20 22:25: SARS-CoV-2 Rap RNA(RT-PCR) DETECTED A* 08/30/20 03:30: Potassium 5.2 H, Carbon Dioxide 9 L*, Anion Gap 40 H, BUN 30 H, Creatinine 3.05 H, Calcium 7.3 L 08/30/20 04:00: WBC 26.0 H, RBC 4.23 L, Hgb 12.4 L, Hct 40.4 L, MCHC 30.7 L, MPV 10.6 H, Band Neuts % (Manual) 32 H, Lymphocytes % (Manual) 7 L 08/30/20 07:26: Bicarbonate Actual 8.5 L, ABG pH 6.94 L*, ABG pO2 58.5 L*, ABG O2 Sat (Measured) 77.0 L*, ABG O2 Content 14.6 L, ABG Base Excess -23.3 L, ABG Hematocrit 40.0 L, ABG Hemoglobin 13.6 L, ABG Oxyhemoglobin 76.2 L, ABG Deox yhemoglobin 22.8 H, A-a O2 Gradient 603.375 H, Chloride 97 L, Ionized Calcium 0.91 L Microbiology - Entire Visit 08/27/20 11:06 Venous blood - Left Arm Blood Culture - Preliminary NO GROWTH AT 48 HOURS 08/27/20 11:06 Venous blood - Right Arm Blood Culture - Preliminary NO GROWTH AT 48 HOURS - Physical Exam Vitals: Vital Signs (12 hours) Temp Pulse Resp Pulse Ox 08/30/20 12:00 97.2 F L 30 H 08/30/20 10:25 68 08/30/20 10:00 30 H 08/30/20 09:00 97.6 F 08/30/20 08:03 81 08/30/20 08:00 30 H 70 L Weight Weight 214 lb 3.2 oz Most Recent Monitor Data Heart Rate from ECG 64 NIBP 118/53 NIBP BP-Mean 74 Respiration from ECG 24 SpO2 42 Physical Exam: The patient had no heart or lung sounds, no corneal or pupillary reflex. He was pronounced at 12:29. Problem - Time spent with Patient (mins): 35 Plan - Discharge Medications Home Medications: Medication Instructions Recorded Confirmed Type Atorvastatin Calcium [Lipitor] 20 mg PO HS 12/23/13 08/27/20 History Omeprazole [Prilosec] 20 mg PO DAILY 12/23/13 08/27/20 History Insulin Glargine,Hum.Rec.Anlog 30 unit SQ QAM 11/15/16 08/27/20 History [Lantus Solostar] Cyanocobalamin (Vitamin B-12) 2 tab PO DAILY 07/31/17 08/27/20 History [B-12] Furosemide 20 mg PO DAILY 07/31/17 08/27/20 History Lisinopril 10 mg PO HS 07/31/17 08/27/20 History Sertraline HCl 1 tab PO QAM 07/31/17 08/27/20 History Aspirin [Ecotrin Low Strength] 81 mg PO DAILY tab 08/14/17 08/27/20 Rx Gabapentin [Neurontin] 600 mg PO HS 12/05/17 08/27/20 History metFORMIN HCl 1,000 mg PO BID 12/05/17 08/27/20 History Apixaban [Eliquis] 5 mg PO BID #0 12/08/17 08/27/20 Rx Amiodarone HCl 100 mg PO HS 11/01/19 08/27/20 History Insulin Glargine [Lantus] 8 units SC HS 11/01/19 08/27/20 History Ferrous Sulfate, Dried [Iron] 65 mg PO BID 08/27/20 08/27/20 History Allergies: No Known Drug Allergies Allergy (Verified 08/27/20 15:05) - Discharge Instructions Therapies:: Not Applicable Equipment/Supplies:: Not Applicable IV Therapy:: Not Applicable - Follow up Plan Referrals: Ori Lucero PA-C [Primary Care Provider] - Disposition: Quality - Care Measures CORE MEASURES:: N/A
[2020-08-31] MEDS ORDERED: Vancomycin 1.5 GRAM/300 ML BAG 1.5 GM in Premix Bag 1 BAG IVPB SCH (08:00)
--- NOTE | 2020-08-31 12:16 | OP ---
DATE OF PROCEDURE: 08/30/2020 PREOPERATIVE DIAGNOSES: 1. Acute hypoxemic respiratory failure secondary to COVID-19 pneumonia. 2. Probable septic shock. POSTOPERATIVE DIAGNOSES: 1. Acute hypoxemic respiratory failure secondary to COVID-19 pneumonia. 2. Probable septic shock. PROCEDURE PERFORMED: Placement of left subclavian triple-lumen central venous catheter. INDICATIONS FOR PROCEDURE: An 80-year-old man admitted in intensive care unit with COVID-19 pneumonia. The patient has developed worsening distributive shock suspicious for severe sepsis. I was asked to place a central venous catheter to facilitate therapeutic intervention. DESCRIPTION OF PROCEDURE: Informed consent was obtained from the patient's power of patent attorney. The patient was placed in supine position. Left chest wall sterilely prepped and draped in usual fashion. The skin below the left clavicle was anesthetized with 1% lidocaine. Left subclavian vein was cannulated with an 18-gauge introducer needle returning dark venous blood. Guidewire was advanced through the needle and placed in the left subclavian vein without resistance. The needle was withdrawn over the guidewire. Stab incision was made adjacent to the guidewire using 11 scalpel. Dilator was passed over the guidewire dilating the subcutaneous tissues. Dilator was removed and a triple-lumen central venous catheter was advanced over the guidewire and placed in the left subclavian vein without resistance stopping at the 18 cm joseph. Guidewire was removed. Dark venous blood was aspirated from all three ports, which were individually flushed with saline. Catheter was secured to anterior chest wall using 3-0 silk suture at two points. Sterile dressings were applied. Portable chest x-ray was obtained confirming proper placement of the port. No pneumothorax present. Job ID: [id number]
--- NOTE | 2020-09-02 09:19 | EKG ---
Test Reason : STAT Blood Pressure : / mmHG Vent. Rate : 069 BPM Atrial Rate : 069 BPM P-R Int : 000 ms QRS Dur : 170 ms QT Int : 518 ms P-R-T Axes : 000 212 033 degrees QTc Int : 555 ms Atrial fibrillation Right bundle branch block Abnormal ECG Confirmed by ELI SAUER MD ([id number]) on 09/02/2020 9:18:45 AM Referred By: LINDY Confirmed By:ELI SAUER MD
== END 2020-08-30 12:29 | disposition expired | DRG 871 ==
LOC: ERS 10:19 → 2SW 14:55 → CCU 08-29 17:22
PROVIDERS: ADMIT Internal Medicine; ATTEND Internal Medicine
PROC: 3E033XZ Introduction of Vasopressor into Peripheral Vein, Percutaneous Approach (ICD-10-PCS; principal; 2020-08-29)
PROC: 0BH17EZ Insertion of Endotracheal Airway into Trachea, Via Natural or Artificial Opening (ICD-10-PCS; 2020-08-29)
PROC: 5A1935Z Respiratory Ventilation, Less than 24 Consecutive Hours (ICD-10-PCS; 2020-08-29)
PROC: 5A12012 Performance of Cardiac Output, Single, Manual (ICD-10-PCS; 2020-08-29)
PROC: 02HV33Z Insertion of Infusion Device into Superior Vena Cava, Percutaneous Approach (ICD-10-PCS; 2020-08-29)
PROC: XW13325 Transfusion of Convalescent Plasma (Nonautologous) into Peripheral Vein, Percutaneous Approach, New Technology Group 5 (ICD-10-PCS; 2020-08-30)
DX: A41.89 Other specified sepsis (principal); R65.21 Severe sepsis with septic shock; J96.01 Acute respiratory failure with hypoxia; U07.1 COVID-19; J12.89 Other viral pneumonia; I50.43 Acute on chronic combined systolic (congestive) and diastolic (congestive) heart failure; N17.0 Acute kidney failure with tubular necrosis; E87.2 Acidosis; J81.1 Chronic pulmonary edema; Z66 Do not resuscitate; Z51.5 Encounter for palliative care; R57.0 Cardiogenic shock; E87.6 Hypokalemia; I49.5 Sick sinus syndrome; I25.10 Atherosclerotic heart disease of native coronary artery without angina pectoris; I48.0 Paroxysmal atrial fibrillation; E05.90 Thyrotoxicosis, unspecified without thyrotoxic crisis or storm; E11.42 Type 2 diabetes mellitus with diabetic polyneuropathy; E83.51 Hypocalcemia; E87.5 Hyperkalemia; I11.0 Hypertensive heart disease with heart failure; Z79.82 Long term (current) use of aspirin; Z79.899 Other long term (current) drug therapy; Z79.4 Long term (current) use of insulin; Z79.01 Long term (current) use of anticoagulants; I25.2 Old myocardial infarction; Z90.49 Acquired absence of other specified parts of digestive tract; Z87.891 Personal history of nicotine dependence; Z85.038 Personal history of other malignant neoplasm of large intestine; K21.9 Gastro-esophageal reflux disease without esophagitis; Z95.1 Presence of aortocoronary bypass graft; Z78.1 Physical restraint status; Z83.3 Family history of diabetes mellitus
CPT/HCPCS: 36415; 36416; 36430; 36600; 71045; 76536; 80048; 80053; 81003; 82550; 82553; 82805; 83605; 83735; 83880; 84439; 84443; 84484; 85025; 85379; 86850; 86900; 86901; 87040; 93005; 93010; 94002; 94003; 96365; 96367; J0171; J0360; J0692; J0696; J1100; J1265; J1650; J1720; J1815; J1940; J2001; J2270; J2543; J3370; J3475; J3490; J7070; P9017; P9045; U0002